=== PATIENT | male | born 1955 | race Caucasian/White ===

== ENCOUNTER 2016-08-07 15:03 | Inpatient (IN) | payer BC ==
[2016-08-07] MEDS ORDERED: NORMAL SALINE 1000 ML 1,000 ML IV ONE ×3 (15:29→17:20)
--- NOTE | 2016-08-07 15:32 | ER Document Report ---
ED Medical Screen (RME) - General Chief Complaint: Abnormal Lab Results Stated Complaint: ABNORMAL LABS Notes: Patient has been vomiting at least 3+ times a day every day for the past 10 days. He's lost about 8 pounds during this 10 days. Went to see his primary care provider last week and was put on various medicines for sinus congestion and infection. Patient relates he took more than he was supposed to take of Mucinex.. He returned to see his primary care provider today and had some lab work done which showed renal insufficiency with a creatinine of 6.5. Patient has never had any kidney dysfunction. Patient has not had any diarrhea. No fever. No urinary tract symptoms. He is still making urine. Only chronic medications are tetracycline once daily for rosacea and Crestor for high cholesterol. Patient did have a history of gastritis when he was 17 years old, but no GI conditions of late. TRAVEL OUTSIDE OF THE [place] IN LAST 30 DAYS: No - Related Data Allergies/Adverse Reactions: No Known Allergies Allergy (Verified 08/07/16 15:07) Past Medical History - Past Medical History Cardiac Medical History: Denies: Hx Heart Attack, Hx Hypertension Pulmonary Medical History: Denies: Hx Asthma Neurological Medical History: Denies: Hx Cerebrovascular Accident, Hx Seizures Renal/ Medical History: Denies: Hx Peritoneal Dialysis GI Medical History: Denies: Hx Hepatitis, Hx Hiatal Hernia, Hx Ulcer Infectious Medical History: Denies: Hx Hepatitis Past Surgical History: Denies: Hx Open Heart Surgery, Hx Pacemaker Physical Exam - Vital signs Vitals: Temp Pulse Resp BP Pulse Ox 98.0 F 73 16 154/86 H 98 08/07/16 15:09 08/07/16 15:09 08/07/16 15:09 08/07/16 15:09 08/07/16 15:09 Course - Vital Signs Vital signs: Temp Pulse Resp BP Pulse Ox 98.0 F 73 16 154/86 H 98 08/07/16 15:09 08/07/16 15:09 08/07/16 15:09 08/07/16 15:09 08/07/16 15:09
[2016-08-07] MEDS ORDERED: ONDANSETRON HCL INJ/PF 4 MG/2 ML SDV IV ONE (15:33)
[2016-08-07 16:17] LABS: HEMATOCRIT 28.6 % (37.9-51.0); HEMOGLOBIN 9.7 g/dL (13.5-17.0); HGB HCT DIFFERENCE 0.5; MEAN CORPUSCULAR HEMOGLOBIN 34.2 pg (27.0-33.4); MEAN CORPUSCULAR VOLUME 101 fl (80-97); RED BLOOD COUNT 2.85 10^6/uL (4.35-5.55); WHITE BLOOD COUNT 9.9 10^3/uL (4.0-10.5)
--- NOTE | 2016-08-07 16:22 | ER Document Report ---
ED General - General Mode of Arrival: Ambulatory Information source: Patient TRAVEL OUTSIDE OF THE [place] IN LAST 30 DAYS: No - HPI Patient complains to provider of: Vomiting and Abnormal Lab Results Onset: Other - 10 days ago Associated symptoms: Other - see notes above <PRISCILLA DEE - Last Filed: 08/07/16 17:31> <ALEAMARY AURE - Last Filed: 08/07/16 22:47> - General Chief Complaint: Abnormal Lab Results Stated Complaint: ABNORMAL LABS Notes: 61 year old male with history of hernial repair (few months ago) presents to the ED complaining of multiple episodes of vomiting (clear liquid) per day for the past 10 days. Patient reports that he saw his primary care physician last week and was prescribed medication for sinus congestion and infection. Patient reports that he has lost 8 pounds during the last 10 days. Patient returned to his primary care provider today for blood work and was sent to the ED after having a creatinine of 6.5. Patient denies history of kidney dysfunction. Patient states that his provider believes that he is vomiting up his sinus drainage. Patient reports a mild headache at bedside, and denies diarrhea or abnormal bowel movements. Patient has been having normal bowel movements for the past 10 days. (PRISCILLA DEE) - Related Data Allergies/Adverse Reactions: No Known Allergies Allergy (Verified 08/07/16 15:07) Home Medications: Current Home Medications Fexofenadine HCl [Berenice] 180 mg PO DAILY 08/07/16 [History] Guaifenesin/Dextromethorphan [Mucinex Dm ER 1,200-60 mg Tab] 1 tab PO Q12 [History] Naproxen 500 mg PO Q12 08/07/16 [History] Omeprazole 20 mg PO ACBRKFST 08/07/16 [History] Oxycodone HCl/Acetaminophen [Percocet 5-325 mg Tablet] 1 tab PO Q6HP PRN [History] Rosuvastatin Calcium [Crestor 5 mg Tablet] 5 mg PO DAILY 08/07/16 [History] Tetracycline HCl [Sumycin 500] 500 mg PO DAILY 08/07/16 [History] Past Medical History - General Information source: Patient - Social History Smoking Status: Unknown if Ever Smoked Family History: Reviewed & Not Pertinent Patient has suicidal ideation: No Patient has homicidal ideation: No Renal/ Medical History: Denies: Hx Peritoneal Dialysis Past Surgical History: Reports: Hx Abdominal Surgery - hernia repair x2 <PRISCILLA DEE - Last Filed: 08/07/16 17:31> Review of Systems - Review of Systems Constitutional: No symptoms reported EENT: No symptoms reported Cardiovascular: No symptoms reported Respiratory: No symptoms reported Gastrointestinal: See HPI, Vomiting. denies: Abdominal pain, Diarrhea Genitourinary: No symptoms reported Male Genitourinary: No symptoms reported Musculoskeletal: No symptoms reported Skin: No symptoms reported Hematologic/Lymphatic: No symptoms reported Neurological/Psychological: See HPI, Headaches -: Yes All other systems reviewed and negative <PRISCILLA DEE - Last Filed: 08/07/16 17:31> Course - Laboratory Result Diagrams: 08/07/16 15:45 08/07/16 15:45 - Consults Dr. Murcia Time consulted: 16:22 Time consulted: 17:16 <PRISCILLA DEE - Last Filed: 08/07/16 17:31> - Laboratory Result Diagrams: 08/07/16 15:45 08/07/16 15:45 - Diagnostic Test Radiology reviewed: Reports reviewed - Consults Dr. Chaudhry Time consulted: 17:00 - does not need dialysis at this time Can be admitted here Consulted provider: will see as inpatient <MARY COSBY - Last Filed: 08/07/16 22:47> - Re-evaluation Re-evalutation: 08/07/16 17:18 Patient is a 61-year-old male who presents with vomiting for the last few days, and outpatient blood work that is showing acute renal insufficiency. Patient has no complaints at this time. Patient was able to keep down breakfast this morning and is tolerating water at this time. Patient is making urine. Patient does have a acute renal insufficiency on his blood work. Potassium is 5.1. Patient was discussed with the hospitalist service, nephrology was consulted, and it was agreed that the patient could be admitted here for his acute renal insufficiency due to dehydration from vomiting. The patient has no abdominal pain. He has been having bowel movements. He is tolerating by mouth at this time. He has good urine output. Stable time of admission. Patient agrees with this plan. 08/07/16 Of note, no acute findings on bladder or renal ultrasound. (MARY COSBY) - Vital Signs Vital signs: Temp Pulse Resp BP Pulse Ox 98.2 F 69 20 132/82 H 95 08/07/16 19:09 08/07/16 19:09 08/07/16 19:09 08/07/16 19:09 08/07/16 19:09 - Laboratory Laboratory results interpreted by me: 08/07/16 08/07/16 08/07/16 15:45 15:45 15:45 RBC 2.85 L Hgb 9.7 L Hct 28.6 L MCV 101 H MCH 34.2 H RDW 17.0 H Plt Count 134 L Monocytes % (Manual) 23 H Metamyelocytes % 1 H Abs Monocytes (Manual) 2.3 H Potassium 5.1 H Chloride 110 H Carbon Dioxide 17 L BUN 67 H Creatinine 6.64 H Est GFR ( Amer) 10 L Est GFR (Non-Af Amer) 9 L Uric Acid 10.3 H Phosphorus 7.9 H Direct Bilirubin 0.6 H Total Protein 10.9 H Urine Blood Ur Leukocyte Esterase 08/07/16 17:58 RBC Hgb Hct MCV MCH RDW Plt Count Monocytes % (Manual) Metamyelocytes % Abs Monocytes (Manual) Potassium Chloride Carbon Dioxide BUN Creatinine Est GFR ( Amer) Est GFR (Non-Af Amer) Uric Acid Phosphorus Direct Bilirubin Total Protein Urine Blood MODERATE H Ur Leukocyte Esterase TRACE H - Consults Dr. Murcia Reason for consultation: 08/07/16 16:22 Patient was discussed with Dr. Murcia and he states that we do no not have dialysis, so the patient will have to be transferred out. 08/07/16 17:31 (PRISCILLA DEE) Called back after discussion with Dr. Chaudhry. Agrees that patient can be admitted here for ARF due to dehydration. (MARY COSBY) Reason for consultation: 08/07/16 17:16 Patient was discussed with and agrees to admit the patient. (PRISCILLA DEE) Critical Care Note - Critical Care Note Total time excluding time spent on procedures (mins): 45 - evaluation and management of acute renal insufficiency, dehydration, consultation with specialist, coordination of admission, counseling of patient and family <MARY COSBY - Last Filed: 08/07/16 22:47> Discharge <PRISCILLA DEE - Last Filed: 08/07/16 17:31> - Discharge Admitting Provider: [facility] Admitted: Telemetry <MARY COSBY - Last Filed: 08/07/16 22:47> - Discharge Clinical Impression: Dehydration Acute renal failure Qualifiers: Acute renal failure type: unspecified Qualified Code(s): N17.9 - Acute kidney failure, unspecified Condition: Stable Disposition: ADMITTED INPATIENT Scribe Attestation: 08/07/16 22:47 I personally performed the services described in the documentation, reviewed and edited the documentation which was dictated to the scribe in my presence, and it accurately records my words and actions. (MARY COSBY) Scribe Documentation - Scribe Written by Scribe:: Preston Cary, 08/07/2016 1636 acting as scribe for :: Alea <PRISCILLA DEE - Last Filed: 08/07/16 17:31>
[2016-08-07 16:30] LABS: BAND NEUTROPHILS % (MANUAL) 3 % (3-5); BASOPHILS % (MANUAL) 0 % (0-2); EOSINOPHILS % (MANUAL) 2 % (0-6); LYMPHOCYTES % (MANUAL) 25 % (13-45); TOTAL CELLS COUNTED 100
[2016-08-07 16:31] LABS: ANISOCYTOSIS 1+; POLYCHROMASIA SLIGHT; TOXIC GRANULATION SLIGHT
[2016-08-07 16:32] LABS: ALANINE AMINOTRANSFERASE 31 U/L (21-72); ALBUMIN 3.9 g/dL (3.5-5.0); ALKALINE PHOSPHATASE 96 U/L (38-126); ANION GAP 17 (5-19); ASPARTATE AMINO TRANSFERASE 27 U/L (17-59); BILIRUBIN,DIRECT 0.6 mg/dL (0.0-0.4); BILIRUBIN,TOTAL 0.7 mg/dL (0.2-1.3); BLOOD UREA NITROGEN 67 mg/dL (7-20); CALCIUM 9.5 mg/dL (8.4-10.2); CARBON DIOXIDE 17 mmol/L (22-30); CHLORIDE 110 mmol/L (98-107); CREATINE KINASE 106 U/L (55-170); CREATININE RESULT 6.64 mg/dL (0.52-1.25); GLUCOSE 102 mg/dL (75-110); POTASSIUM 5.1 mmol/L (3.6-5.0); SODIUM 144.1 mmol/L (137-145); TOTAL PROTEIN 10.9 g/dL (6.3-8.2)
[2016-08-07 18:27] LABS: APPEARANCE,URINE CLEAR; BILIRUBIN,URINE NEGATIVE (NEGATIVE); GLUCOSE, URINE NEGATIVE (NEGATIVE); KETONES,URINE NEGATIVE (NEGATIVE); LEUKOCYTE ESTERASE,URINE TRACE (NEGATIVE); NITRITE,URINE NEGATIVE (NEGATIVE); PROTEIN,URINE NEGATIVE (NEGATIVE); URINE SPECIFIC GRAVITY 1.011; UROBILINOGEN,URINE NEGATIVE mg/dL (<2.0)
[2016-08-07] MEDS ORDERED: IPRATROPIUM/ALBUTEROL 0.5-2.5 MG/3 ML AMPUL NEB PRN (18:43)
[2016-08-07] MEDS ORDERED: ACETAMINOPHEN 325 MG TABLET PO PRN (18:43)
[2016-08-07 19:26] LABS: LIPASE 208.3 U/L (23-300); MAGNESIUM 2.3 mg/dL (1.6-2.3); PHOSPHORUS 7.9 mg/dL (2.5-4.5); URIC ACID 10.3 mg/dL (3.5-8.5)
[2016-08-07] MEDS: NORMAL SALINE 1000 ML 1,000 ML IV PRN (20:40)
[2016-08-07] MEDS: PANTOPRAZOLE SODIUM 40 MG VIAL IV SCH (21:28)
--- NOTE | 2016-08-07 22:30 | EKG REPORT ---
SEVERITY:- ABNORMAL ECG - SINUS RHYTHM INCOMPLETE RIGHT BUNDLE BRANCH BLOCK : Confirmed by: Emelyn Charles MD 07-Aug-2016 22:30:05
[2016-08-08 06:17] LABS: HEMATOCRIT 23.9 % (37.9-51.0); HEMOGLOBIN 8.2 g/dL (13.5-17.0); HGB HCT DIFFERENCE 0.7; MEAN CORPUSCULAR HGB CONC 34.2 g/dL (32.0-36.0); MEAN CORPUSCULAR VOLUME 99 fl (80-97); RED CELL DISTRIBUTION WIDTH 16.6 % (11.5-14.0); WHITE BLOOD COUNT 6.9 10^3/uL (4.0-10.5)
[2016-08-08] MEDS: NORMAL SALINE 1000 ML 1,000 ML IV PRN ×3 (06:23→18:05)
[2016-08-08 06:28] LABS: ANION GAP 9 (5-19); BLOOD UREA NITROGEN 59 mg/dL (7-20); CALCIUM 8.5 mg/dL (8.4-10.2); CARBON DIOXIDE 19 mmol/L (22-30); CHLORIDE 115 mmol/L (98-107); CHOLESTEROL 107.62 mg/dL (0-200); CREATININE RESULT 6.26 mg/dL (0.52-1.25); Direct HDL 20 mg/dL (>40); GLUCOSE 95 mg/dL (75-110); TRIGLYCERIDES 153 mg/dL (<150)
[2016-08-08 06:39] LABS: BAND NEUTROPHILS % (MANUAL) 5 % (3-5); BASOPHILS % (MANUAL) 0 % (0-2); DIRECT LDL 41 mg/dL (<100); EOSINOPHILS % (MANUAL) 3 % (0-6); LYMPHOCYTES % (MANUAL) 29 % (13-45); TOTAL CELLS COUNTED 100
[2016-08-08] MEDS: ONDANSETRON HCL INJ/PF 4 MG/2 ML SDV IV PRN ×3 (06:39→23:20)
[2016-08-08 06:41] LABS: ANISOCYTOSIS 1+; TOXIC GRANULATION SLIGHT
[2016-08-08 06:42] LABS: POLYCHROMASIA SLIGHT
[2016-08-08 06:43] LABS: VLDL CHOLESTEROL 30.6 mg/dL (10-31)
[2016-08-08 07:36] LABS: FOLATE 7.06 ng/mL (>2.76)
[2016-08-08] MEDS: PANTOPRAZOLE SODIUM 40 MG VIAL IV SCH ×2 (08:54→21:43)
[2016-08-08] MEDS ORDERED: DEXTROSE 50%-WATER 25 GM/50 ML DISP.SYRIN IV ONE (09:45)
[2016-08-08] MEDS ORDERED: INSULIN REG, HUMAN 100 UNIT/ML 3 ML VIAL (PYX) IV ONE (09:45)
--- NOTE | 2016-08-08 10:01 | EKG REPORT ---
SEVERITY:- NORMAL ECG - SINUS RHYTHM : Confirmed by: Janes Muñiz 08-Aug-2016 10:01:00
[2016-08-08] MEDS: SODIUM POLYSTYRENE SULFONATE 15 GM/60 ML PO SCH ×2 (10:25→21:43)
--- NOTE | 2016-08-08 15:42 | PDOC CONSULTATION ---
Consultation Consult Date: 08/08/16 Consult reason:: Acute kidney injury and hyperkalemia History of Present Illness Admission Date/PCP: 08/07/16 18:43 DAQUAN MEJIA MD History of Present Illness: Patient is a 61 years old gentleman with a rather insignificant past medical history but for hypercholesterolemia and taking Crestor was sent to the ER by Dr. Daquan Turcios with apparent abnormal labs/acute kidney injury. He gives a history of about 10 days of nausea vomiting and unable to eat much. However he has been able to hydrate himself and he has been urinating quite well. No history of any hematemesis abdominal pains diarrhea. No history of any orthostasis focal deficits. He states his urine began to get dark over the last couple of days. He saw Dr. Turcios who initially diagnosed in with possible atypical viral disease and was symptomatically treating him. Those medications also included naproxen which was taking 1 a day. Patient denies any history of skin lesions, polyarthralgia. No Family history of kidney diseases. No previous history of acute or chronic kidney disease in the patient. His admission BUNs/creatinine was 67/6.6 and today is 59/6.2 potassium was 5.1 on admission today is 6.0 and is being given Kayexalate. Calcium of 9.5 phosphorus of 7.9. CPK is normal and his pancreatic enzymes are normal. Hemoglobin on admission was 9.7 and today has dropped to 8.2. Anemia workup has been initiated. His electrophoresis is pending. Past Medical History Cardiac Medical History: Denies: Hypertension-primary, Myocardial Infarction Pulmonary Medical History: Denies: Asthma Neurological Medical History: Denies: Seizures Endocrine Medical History: Reports: Other - Hyperlipidemia GI Medical History: Denies: Hepatitis, Hiatal Hernia Psychiatric Medical History: Denies: Depression Past Surgical History Past Surgical History: Reports: Other - Double inguinal hernia surgery recently at [facility] Denies: Pacemaker Social History Smoking Status: Former Smoker Last Time Smoked: 2013 Frequency of Alcohol Use: None Hx Recreational Drug Use: No - Advance Directive Resuscitation Status: Full Code Family History Parental Family History Reviewed: Yes - positive for diabetes but negative for ckd Children Family History Reviewed: Yes Sibling(s) Family History Reviewed.: Yes Medication/Allergy Home Medications: Fexofenadine HCl [Berenice] 180 mg PO DAILY 08/07/16 Guaifenesin/Dextromethorphan [Mucinex Dm ER 1,200-60 mg Tab] 1 tab PO Q12 Naproxen 500 mg PO Q12 08/07/16 Omeprazole 20 mg PO ACBRKFST 08/07/16 Oxycodone HCl/Acetaminophen [Percocet 5-325 mg Tablet] 1 tab PO Q6HP PRN Rosuvastatin Calcium [Crestor 5 mg Tablet] 5 mg PO DAILY 08/07/16 Tetracycline HCl [Sumycin 500] 500 mg PO DAILY 08/07/16 Allergies/Adverse Reactions: No Known Allergies Allergy (Verified 08/07/16 15:07) Review of Systems Review of Systems: Constitutional: PRESENT: as per HPI. ABSENT: chills, fever(s), weight gain, weight loss Eyes: ABSENT: visual disturbances Ears: ABSENT: hearing changes Cardiovascular: ABSENT: chest pain, dyspnea on exertion, edema, orthropnea, palpitations Respiratory: ABSENT: cough, hemoptysis Gastrointestinal: ABSENT: abdominal pain, constipation, diarrhea, hematemesis, hematochezia, Genitourinary: ABSENT: dysuria, hematuria Musculoskeletal: ABSENT: joint swelling Integumentary: ABSENT: rash, wounds Neurological: ABSENT: abnormal gait, abnormal speech, confusion, dizziness, focal weakness, syncope Psychiatric: ABSENT: anxiety, depression, homicidal ideation, suicidal ideation Endocrine: ABSENT: cold intolerance, heat intolerance, polydipsia, polyuria Hematologic/Lymphatic: ABSENT: easy bleeding, easy bruising, lymphadenopathy Physical Exam Vital Signs: Temp Pulse Resp BP Pulse Ox 97.8 F 70 17 143/82 H 99 08/08/16 11:24 08/08/16 11:24 08/08/16 11:24 08/08/16 11:24 08/08/16 11:24 Intake & Output 08/07/16 08/08/16 08/09/16 06:59 06:59 06:59 Intake Total 507 Balance 507 Weight 95.8 kg General appearance: PRESENT: no acute distress Eye exam: PRESENT: conjunctiva pink, EOMI, PERRLA. ABSENT: nystagmus, scleral icterus Ear exam: PRESENT: normal external ear exam Neck exam: ABSENT: lymphadenopathy, meningismus, tenderness, thyromegaly, tracheal deviation Respiratory exam: PRESENT: clear to auscultation gloria, symmetrical. ABSENT: chest wall tenderness, crackles, rhonchi Cardiovascular exam: PRESENT: +S1, +S2 GI/Abdominal exam: PRESENT: normal bowel sounds, soft. ABSENT: distended, firm , organomegaly, tenderness Extremities exam: ABSENT: pedal edema Neurological exam: PRESENT: alert, awake, oriented to person, oriented to place , oriented to time Skin exam: PRESENT: dry. ABSENT: cyanosis, erythema, mottled, rash Results Laboratory Results: 08/08/16 05:43 08/08/16 05:43 08/08/16 08/08/16 08/08/16 05:43 05:43 13:28 WBC 6.9 RBC 2.40 L Hgb 8.2 L Hct 23.9 L MCV 99 H MCH 34.0 H MCHC 34.2 RDW 16.6 H Plt Count 115 L Seg Neutrophils % Not Reportable Lymphocytes % Not Reportable Monocytes % Not Reportable Eosinophils % Not Reportable Basophils % Not Reportable Absolute Neutrophils Not Reportable Absolute Lymphocytes Not Reportable Absolute Monocytes Not Reportable Absolute Eosinophils Not Reportable Absolute Basophils Not Reportable Retic Count (auto) 1.50 Absolute Retic 0.036 Sodium 143.0 Potassium 6.0 H* Chloride 115 H Carbon Dioxide 19 L Anion Gap 9 BUN 59 H Creatinine 6.26 H Est GFR ( Amer) 11 L Est GFR (Non-Af Amer) 9 L Glucose 95 Calcium 8.5 Iron 55.4 TIBC 197 L % Saturation 28 Ferritin 153.00 Triglycerides 153 H Cholesterol 107.62 LDL Cholesterol Direct 41 VLDL Cholesterol 30.6 HDL Cholesterol 20 L Vitamin B12 571.0 Folate 7.06 Stool Occult Blood NEGATIVE Impressions: Renal Ultrasound 08/07/16 00:00 IMPRESSION: NORMAL RENAL AND BLADDER ULTRASOUND. Assessment & Plan - Diagnosis (1) Hyperkalemia Plan: Being treated with Kayexalate. Monitor. Labs ordered for 1600 hours. Continue with IV fluids. (2) Vomiting Plan: Presently better since he has been given Zofran. Patient has had some breakfast and lunch which has kept inside. (3) Acute renal failure Qualifiers: Acute renal failure type: unspecified Qualified Code(s): N17.9 - Acute kidney failure, unspecified Plan: Secondary to dehydration and possible naproxen. Renal ultrasound negative for any issues. Continue with appropriate hydration. Hemodynamically stable. Expect hopefully complete recovery in the next few days. (4) Dehydration Plan: On IV saline and continue the present rate.
[2016-08-08 16:22] LABS: ANION GAP 9 (5-19); BLOOD UREA NITROGEN 58 mg/dL (7-20); CALCIUM 8.6 mg/dL (8.4-10.2); CARBON DIOXIDE 21 mmol/L (22-30); CHLORIDE 114 mmol/L (98-107); CREATININE RESULT 5.89 mg/dL (0.52-1.25); GLUCOSE 132 mg/dL (75-110); POTASSIUM 5.2 mmol/L (3.6-5.0); SODIUM 144.4 mmol/L (137-145)
--- NOTE | 2016-08-08 17:07 | PDOC H&P ---
History of Present Illness Admission Date/PCP: 08/07/16 18:07 KINGA MEJIA MD Patient complains of: Nausea and vomiting for a week History of Present Illness: BENNETT CASTILLO is a 61 year old male presents from his primary care provider's office after labs revealed renal insufficiency with a serum creatinine up to 6.4. Patient reports over the course of the last week he's had intense sinus drainage that makes him nauseous and so is been unable to eat or drink anything of substance and has been vomiting quite frequently. He denies abdominal pain, fevers or chills, sore throat, odynophagia, chest pain, palpitations, diarrhea. He does not use chronic nonsteroidal anti-inflammatory medications and does not take a daily aspirin. He has not noticed a change in the color content or volume of his urine. He denies dysuric symptoms. He has never had renal insufficiency before to his knowledge. He was seen in his PCPs office earlier in the week and treated with Mucinex which he took inappropriately for about a day and was the extended release formulation that he took every 6 hours instead of every 12. He also started taking Berenice but without the pseudoephedrine portion and his primary care provider recently started him on Prilosec. Evaluation in the emergency department shows a markedly elevated BUN/creatinine is 67/6.4, his potassium is 5.1, CO2 is 17. He is alert and oriented to person present time. He has no EKG changes. We've been asked to admit for IV hydration and nephrology consult. Past Medical History Cardiac Medical History: Denies: Myocardial Infarction, Hypertension Pulmonary Medical History: Denies: Asthma Neurological Medical History: Denies: Seizures GI Medical History: Denies: Hepatitis, Hiatal Hernia Hematology: Denies: Anemia, Sickle Cell Disease Past Surgical History Past Surgical History: Denies: Pacemaker Social History Smoking Status: Unknown if Ever Smoked - Advance Directive Resuscitation Status: Full Code Family History Family History: Reviewed & Not Pertinent Parental Family History Reviewed: Yes Children Family History Reviewed: Yes Sibling(s) Family History Reviewed.: Yes Medication/Allergy Home Medications: Fexofenadine HCl [Berenice] 180 mg PO DAILY 08/07/16 Guaifenesin/Dextromethorphan [Mucinex Dm ER 1,200-60 mg Tab] 1 tab PO Q12 04/07/ 17 Naproxen 500 mg PO Q12 08/07/16 Omeprazole 20 mg PO ACBRKFST 08/07/16 Oxycodone HCl/Acetaminophen [Percocet 5-325 mg Tablet] 1 tab PO Q6HP PRN Rosuvastatin Calcium [Crestor 5 mg Tablet] 5 mg PO DAILY 08/07/16 Tetracycline HCl [Sumycin 500] 500 mg PO DAILY 08/07/16 Allergies/Adverse Reactions: No Known Allergies Allergy (Verified 08/07/16 15:07) Review of Systems Constitutional: ABSENT: chills, fever(s), headache(s), weight gain, weight loss Eyes: ABSENT: visual disturbances Ears: ABSENT: hearing changes Nose, Mouth, and Throat: PRESENT: as per HPI. ABSENT: sore throat Cardiovascular: ABSENT: chest pain, dyspnea on exertion, edema, orthropnea, palpitations Respiratory: ABSENT: cough, hemoptysis Gastrointestinal: PRESENT: nausea, vomiting. ABSENT: abdominal pain, constipation, hematemesis, hematochezia Genitourinary: ABSENT: difficulty urinating, dysuria, hematuria Musculoskeletal: ABSENT: joint swelling Integumentary: ABSENT: rash, wounds Neurological: ABSENT: abnormal gait, abnormal speech, confusion, dizziness, focal weakness, syncope Psychiatric: ABSENT: anxiety, depression, homidical ideation, suicidal ideation Endocrine: ABSENT: cold intolerance, heat intolerance, polydipsia, polyuria Hematologic/Lymphatic: ABSENT: easy bleeding, easy bruising Physical Exam Vital Signs: Temp Pulse Resp BP Pulse Ox 98.0 F 73 16 154/86 H 98 08/07/16 15:09 08/07/16 15:09 08/07/16 15:09 08/07/16 15:09 08/07/16 15:09 PHYSICAL EXAM GENERAL: NAD; well developed, well nourished; no obese; alert and oriented to person, place, time, situation HEENT: normocephalic, atraumatic; EOMI, PERRLA, no conjunctival injection, no scleral icterus; oral mucosa moist; neck supple, no LAD, normal ROM RESPIRATORY: no accessory muscle use, no increased WOB, good air entry bilaterally; no wheezes, rales, rhonchi; no inspiratory crackles CARDIO: no JVD; RRR; no systolic murmur; no tachycardia VASCULAR: no carotid bruit; no abdominal bruit; no pallor; 2+ radial, DP pulse ; normal capillary refill GI: soft; nondistended; normal bowel sounds; no hepato spleno megaly; no rebound, rigidity, guarding : normal external genitalia; rectal deferred NEURO: normal patella reflexes; normal sensation; normal motor function; no gait abnls; no dysarthria; no nystagmus; tongue protrudes midline MSK: 5/5 strength; normal ROM hips; ambulatory without assistance; no tenderness EXTREMITIES: no calf tender; no palpable cords in calf; no clubbing, cyanosis , pedal edema PSYCH: normal affect, normal mood SKIN: warm; moist; no petechiae; no telengectasias; no jaundice; no rash Results Laboratory Results: Labs reviewed, mild anemia with macrocytosis and thrombocytopenia; chemistries show BUN and creatinine markedly elevated, phosphorus is 7.9, uric acid of 10.3 Assessment & Plan - Diagnosis (1) Acute renal failure Qualifiers: Acute renal failure type: unspecified Qualified Code(s): N17.9 - Acute kidney failure, unspecified Is this a current diagnosis for this admission?: YesPlan: Likely prerenal. Patient being admitted to the hospital for IV fluids and further investigation. We'll get a renal ultrasound to evaluate for obstruction. Strict I's and O's. Nephrology consult for further recommendations. (2) Dehydration Is this a current diagnosis for this admission?: YesPlan: As above. (3) Hyperkalemia Is this a current diagnosis for this admission?: YesPlan: Likely secondary to acute renal failure. No EKG changes noted at present. We' ll continue to monitor at this time, I suspect will decrease with IV fluids. (4) Vomiting Qualifiers: Vomiting type: unspecified Is this a current diagnosis for this admission?: YesPlan: Unclear etiology. Probable viral enteritis. Start PPI therapy twice a day and continue to monitor. (5) Macrocytic anemia Is this a current diagnosis for this admission?: YesPlan: No evidence for blood loss. Possibly nutrition related. Anemia workup. - Time Time Spent: Greater than 70 Minutes Medications reviewed and adjusted accordingly: Yes Anticipated discharge: Home Within: within 72 hours - Inpatient Certification Medical Necessity: Significant Comorbidiites Make Outpatient Treatment Too Risky , Need For IV Fluids, Risk of Complication if Not Cared For in Hospital
--- NOTE | 2016-08-08 17:19 | PDOC PROGRESS REPORT ---
Subjective Progress Note for:: 08/08/16 Subjective:: Reason for follow-up visit: Acute renal failure, hyperkalemia, anemia, vomiting Hospital course: BENNETT CASTILLO is a 61 year old male presents from his primary care provider's office after labs revealed renal insufficiency with a serum creatinine up to 6.4. Patient reports over the course of the last week he's had intense sinus drainage that makes him nauseous and so is been unable to eat or drink anything of substance and has been vomiting quite frequently. He denies abdominal pain, fevers or chills, sore throat, odynophagia, chest pain, palpitations, diarrhea. He does not use chronic nonsteroidal anti-inflammatory medications and does not take a daily aspirin. He has not noticed a change in the color content or volume of his urine. He denies dysuric symptoms. He has never had renal insufficiency before to his knowledge. He was seen in his PCPs office earlier in the week and treated with Mucinex which he took inappropriately for about a day and was the extended release formulation that he took every 6 hours instead of every 12. He also started taking Berenice but without the pseudoephedrine portion and his primary care provider recently started him on Prilosec. Evaluation in the emergency department shows a markedly elevated BUN/creatinine is 67/6.4, his potassium is 5.1, CO2 is 17. He is alert and oriented to person present time. He has no EKG changes. We've been asked to admit for IV hydration and nephrology consult. He was admitted to the hospital and started on IV fluids with no improvement in his overall condition, he continues to complain of nausea and anorexia and his renal function really hasn't improved. He continues to deny abdominal pain, or diarrhea, chest pain, palpitations, fever, chills. ROS: per HPI plus a total of 10 systems reviewed, pertinent positives and negatives noted above, remaining systems negative. Physical Exam Vital Signs: Temp Pulse Resp BP Pulse Ox 98.8 F 70 17 145/72 H 100 08/08/16 15:15 08/08/16 15:15 08/08/16 15:15 08/08/16 15:15 08/08/16 15:15 Intake & Output 08/07/16 08/08/16 08/09/16 06:59 06:59 06:59 Intake Total 507 Balance 507 Weight 95.8 kg PHYSICAL EXAM GENERAL: NAD; well developed, well nourished; no obese; alert and oriented to person, place, time, situation HEENT: normocephalic, atraumatic, no conjunctival injection, no scleral icterus ; oral mucosa moist; neck supple, no LAD, normal ROM RESPIRATORY: no accessory muscle use, no increased WOB, good air entry bilaterally; no wheezes, rales, rhonchi; no inspiratory crackles CARDIO: no JVD; RRR; no systolic murmur; no tachycardia VASCULAR: no carotid bruit; no abdominal bruit; no pallor; 2+ radial, GI: soft; nondistended; normal bowel sounds; no rebound, rigidity, guarding NEURO: normal patella reflexes; normal sensation; normal motor function; MSK: 5/5 strength; normal ROM hips; ambulatory without assistance; no tenderness EXTREMITIES: no calf tender; no palpable cords in calf; no clubbing, cyanosis , pedal edema PSYCH: normal affect, normal mood SKIN: warm; moist; no petechiae; no telengectasias; no jaundice; no rash Results Laboratory Results: 08/08/16 05:43 08/08/16 15:45 08/08/16 08/08/16 08/08/16 05:43 05:43 13:28 WBC 6.9 RBC 2.40 L Hgb 8.2 L Hct 23.9 L MCV 99 H MCH 34.0 H MCHC 34.2 RDW 16.6 H Plt Count 115 L Seg Neutrophils % Not Reportable Lymphocytes % Not Reportable Monocytes % Not Reportable Eosinophils % Not Reportable Basophils % Not Reportable Absolute Neutrophils Not Reportable Absolute Lymphocytes Not Reportable Absolute Monocytes Not Reportable Absolute Eosinophils Not Reportable Absolute Basophils Not Reportable Retic Count (auto) 1.50 Absolute Retic 0.036 Sodium 143.0 Potassium 6.0 H* Chloride 115 H Carbon Dioxide 19 L Anion Gap 9 BUN 59 H Creatinine 6.26 H Est GFR ( Amer) 11 L Est GFR (Non-Af Amer) 9 L Glucose 95 Calcium 8.5 Iron 55.4 TIBC 197 L % Saturation 28 Ferritin 153.00 Triglycerides 153 H Cholesterol 107.62 LDL Cholesterol Direct 41 VLDL Cholesterol 30.6 HDL Cholesterol 20 L Vitamin B12 571.0 Folate 7.06 Stool Occult Blood NEGATIVE 08/08/16 15:45 WBC RBC Hgb Hct MCV MCH MCHC RDW Plt Count Seg Neutrophils % Lymphocytes % Monocytes % Eosinophils % Basophils % Absolute Neutrophils Absolute Lymphocytes Absolute Monocytes Absolute Eosinophils Absolute Basophils Retic Count (auto) Absolute Retic Sodium 144.4 Potassium 5.2 H Chloride 114 H Carbon Dioxide 21 L Anion Gap 9 BUN 58 H Creatinine 5.89 H Est GFR ( Amer) 12 L Est GFR (Non-Af Amer) 10 L Glucose 132 H Calcium 8.6 Iron TIBC % Saturation Ferritin Triglycerides Cholesterol LDL Cholesterol Direct VLDL Cholesterol HDL Cholesterol Vitamin B12 Folate Stool Occult Blood Impressions: Renal Ultrasound 08/07/16 00:00 IMPRESSION: NORMAL RENAL AND BLADDER ULTRASOUND. Assessment & Plan - Diagnosis (1) Acute renal failure Qualifiers: Acute renal failure type: unspecified Qualified Code(s): N17.9 - Acute kidney failure, unspecified Is this a current diagnosis for this admission?: YesPlan: Likely prerenal. continue IV fluids and further investigation. renal ultrasound negative for obstruction. Strict I's and O's. Nephrology consult for further recommendations. (2) Dehydration Is this a current diagnosis for this admission?: YesPlan: Increase IV fluids. (3) Hyperkalemia Is this a current diagnosis for this admission?: YesPlan: Worse. Likely secondary to acute renal failure. No EKG changes noted. Treat with IV insulin/D50 and Kayexalate, repeat labs this afternoon and treat again if needed. (4) Vomiting Qualifiers: Vomiting type: unspecified Is this a current diagnosis for this admission?: YesPlan: Unclear etiology. Probable viral enteritis. Continue PPI therapy twice a day and continue to monitor. (5) Macrocytic anemia Is this a current diagnosis for this admission?: YesPlan: No evidence for blood loss. Possibly nutrition related. Anemia workup underway. - Time Time Spent with patient: 25-34 minutes Medications reviewed and adjusted accordingly: Yes Anticipated discharge: Home Within: within 72 hours
[2016-08-09 06:42] LABS: HEMATOCRIT 24.7 % (37.9-51.0); HEMOGLOBIN 8.4 g/dL (13.5-17.0); HGB HCT DIFFERENCE 0.5; MEAN CORPUSCULAR HEMOGLOBIN 34.4 pg (27.0-33.4); MEAN CORPUSCULAR HGB CONC 34.1 g/dL (32.0-36.0); MEAN CORPUSCULAR VOLUME 101 fl (80-97); RED BLOOD COUNT 2.45 10^6/uL (4.35-5.55); RED CELL DISTRIBUTION WIDTH 16.9 % (11.5-14.0); WHITE BLOOD COUNT 9.7 10^3/uL (4.0-10.5)
[2016-08-09 06:52] LABS: ANION GAP 11 (5-19); BLOOD UREA NITROGEN 54 mg/dL (7-20); CALCIUM 8.3 mg/dL (8.4-10.2); CARBON DIOXIDE 19 mmol/L (22-30); CHLORIDE 115 mmol/L (98-107); CREATININE RESULT 5.56 mg/dL (0.52-1.25); GLUCOSE 98 mg/dL (75-110); POTASSIUM 5.1 mmol/L (3.6-5.0); SODIUM 145.1 mmol/L (137-145)
[2016-08-09 07:42] LABS: BAND NEUTROPHILS % (MANUAL) 4 % (3-5); BASOPHILS % (MANUAL) 0 % (0-2); EOSINOPHILS % (MANUAL) 1 % (0-6); LYMPHOCYTES % (MANUAL) 22 % (13-45); NUCLEATED RED BLOOD CELLS 1 /100 WBC (0); TOTAL CELLS COUNTED 100
[2016-08-09 07:44] LABS: ANISOCYTOSIS 1+
[2016-08-09] MEDS: ONDANSETRON HCL INJ/PF 4 MG/2 ML SDV IV PRN ×2 (09:30→12:43)
[2016-08-09] MEDS: PANTOPRAZOLE SODIUM 40 MG VIAL IV SCH ×2 (09:30→21:30)
[2016-08-09] MEDS: NORMAL SALINE 1000 ML 1,000 ML IV PRN (12:48)
--- NOTE | 2016-08-09 14:18 | PDOC PROGRESS REPORT ---
Subjective Progress Note for:: 08/09/16 Subjective:: Reason for follow-up visit: Acute renal failure, hyperkalemia, anemia, vomiting Hospital course: BENNETT CASTILLO is a 61 year old male presents from his primary care provider's office after labs revealed renal insufficiency with a serum creatinine up to 6.4. Patient reports over the course of the last week he's had intense sinus drainage that makes him nauseous and so is been unable to eat or drink anything of substance and has been vomiting quite frequently. He denies abdominal pain, fevers or chills, sore throat, odynophagia, chest pain, palpitations, diarrhea. He does not use chronic nonsteroidal anti-inflammatory medications and does not take a daily aspirin. He has not noticed a change in the color content or volume of his urine. He denies dysuric symptoms. He has never had renal insufficiency before to his knowledge. He was seen in his PCPs office earlier in the week and treated with Mucinex which he took inappropriately for about a day and was the extended release formulation that he took every 6 hours instead of every 12. He also started taking Berenice but without the pseudoephedrine portion and his primary care provider recently started him on Prilosec. Evaluation in the emergency department shows a markedly elevated BUN/creatinine is 67/6.4, his potassium is 5.1, CO2 is 17. He is alert and oriented to person present time. He has no EKG changes. We've been asked to admit for IV hydration and nephrology consult. He was admitted to the hospital and started on IV fluids with little improvement in his overall condition, he continues to complain of nausea and anorexia and his renal function has only minimally improved. He continues to deny abdominal pain, or diarrhea, chest pain, palpitations, fever, chills. he had several BMs after the kayexolate. ROS: per HPI plus a total of 10 systems reviewed, pertinent positives and negatives noted above, remaining systems negative. Physical Exam Vital Signs: Temp Pulse Resp BP Pulse Ox 98.0 F 65 20 143/84 H 100 08/09/16 12:00 08/09/16 12:00 08/09/16 12:00 08/09/16 12:00 08/09/16 12:00 Intake & Output 04/08/17 04/09/17 04/10/17 06:59 06:59 06:59 Intake Total 507 5060 Output Total 950 Balance 507 4120 Weight 95.8 kg 96.4 kg PHYSICAL EXAM GENERAL: NAD; well developed, well nourished; no obese; alert and oriented to person, place, time, situation; appears ill HEENT: normocephalic, atraumatic, no conjunctival injection, no scleral icterus ; oral mucosa moist; neck supple, no LAD, normal ROM RESPIRATORY: no accessory muscle use, no increased WOB, good air entry bilaterally; no wheezes, rales, rhonchi; no inspiratory crackles CARDIO: no JVD; RRR; no systolic murmur; no tachycardia VASCULAR: no carotid bruit; no abdominal bruit; no pallor; 2+ radial, GI: soft; nondistended; normal bowel sounds; no rebound, rigidity, guarding NEURO: normal patella reflexes; normal sensation; normal motor function; MSK: 5/5 strength; normal ROM hips; ambulatory without assistance; no tenderness EXTREMITIES: no calf tender; no palpable cords in calf; no clubbing, cyanosis , pedal edema PSYCH: normal affect, normal mood SKIN: warm; moist; no petechiae; no telengectasias; no jaundice; no rash Results Laboratory Results: 08/09/16 05:40 08/09/16 05:40 08/08/16 08/09/16 08/09/16 15:45 05:40 05:40 WBC 9.7 RBC 2.45 L Hgb 8.4 L Hct 24.7 L MCV 101 H MCH 34.4 H MCHC 34.1 RDW 16.9 H Plt Count 110 L Seg Neutrophils % Not Reportable Lymphocytes % Not Reportable Monocytes % Not Reportable Eosinophils % Not Reportable Basophils % Not Reportable Absolute Neutrophils Not Reportable Absolute Lymphocytes Not Reportable Absolute Monocytes Not Reportable Absolute Eosinophils Not Reportable Absolute Basophils Not Reportable Sodium 144.4 145.1 H Potassium 5.2 H 5.1 H Chloride 114 H 115 H Carbon Dioxide 21 L 19 L Anion Gap 9 11 BUN 58 H 54 H Creatinine 5.89 H 5.56 H Est GFR ( Amer) 12 L 13 L Est GFR (Non-Af Amer) 10 L 10 L Glucose 132 H 98 Calcium 8.6 8.3 L Impressions: Renal Ultrasound 08/07/16 00:00 IMPRESSION: NORMAL RENAL AND BLADDER ULTRASOUND. Abdomen/Pelvis CT 08/09/16 00:00 IMPRESSION: 1. Noncontrast study reveals no acute or suspicious abdominopelvic abnormality. As described above, oral contrast was not given due to technical error. Study can be repeated with oral contrast if felt to be clinically warranted. As assessed, however no bowel pathology evident. No hernia. Assessment & Plan - Diagnosis (1) Acute renal failure Qualifiers: Acute renal failure type: unspecified Qualified Code(s): N17.9 - Acute kidney failure, unspecified Is this a current diagnosis for this admission?: YesPlan: Likely prerenal but looking more and more like an ATN, given slow recovery of filtration/function. continue IV fluids at a lower rate. renal ultrasound negative for obstruction. Strict I's and O's. Nephrology consulted for further recommendations. (2) Dehydration Is this a current diagnosis for this admission?: Yes (3) Hyperkalemia Is this a current diagnosis for this admission?: YesPlan: improved with treatmente. Likely secondary to acute renal failure. No EKG changes noted. Treated with IV insulin/D50 and Kayexalate. (4) Vomiting Qualifiers: Vomiting type: unspecified Is this a current diagnosis for this admission?: YesPlan: suspect viral enteritis. ct a/p unrevealing. Continue PPI therapy twice a day and continue to monitor. (5) Macrocytic anemia Is this a current diagnosis for this admission?: Yes - Time Time Spent with patient: 25-34 minutes Medications reviewed and adjusted accordingly: Yes Anticipated discharge: Home Within: within 24 hours - If his condition improves and renal function does not worsen
[2016-08-09] MEDS ORDERED: DEXAMETHASONE SOD PHOS INJ 10 MG/1 ML VIAL IV PRN (15:59)
[2016-08-09] MEDS ORDERED: DEXAMETHASONE SOD PHOSPHATE 20 MG in DEXTROSE 5%-WATER 50 ML IV ONE (17:00)
[2016-08-09] MEDS ORDERED: PROMETHAZINE HCL 25 MG TABLET PO ONE (17:00)
[2016-08-09] MEDS: SODIUM BICARBONATE 650 MG TABLET PO SCH (21:25)
[2016-08-10 07:36] LABS: HEMATOCRIT 24.6 % (37.9-51.0); HEMOGLOBIN 8.5 g/dL (13.5-17.0); HGB HCT DIFFERENCE 0.9; MEAN CORPUSCULAR HEMOGLOBIN 34.4 pg (27.0-33.4); MEAN CORPUSCULAR HGB CONC 34.5 g/dL (32.0-36.0); MEAN CORPUSCULAR VOLUME 100 fl (80-97); RED BLOOD COUNT 2.47 10^6/uL (4.35-5.55); RED CELL DISTRIBUTION WIDTH 16.7 % (11.5-14.0); WHITE BLOOD COUNT 10.8 10^3/uL (4.0-10.5)
[2016-08-10 07:57] LABS: ALANINE AMINOTRANSFERASE 21 U/L (21-72); ALBUMIN 3.1 g/dL (3.5-5.0); ALKALINE PHOSPHATASE 87 U/L (38-126); ANION GAP 12 (5-19); ASPARTATE AMINO TRANSFERASE 18 U/L (17-59); BILIRUBIN,DIRECT 0.4 mg/dL (0.0-0.4); BILIRUBIN,TOTAL 0.4 mg/dL (0.2-1.3); BLOOD UREA NITROGEN 52 mg/dL (7-20); CALCIUM 8.5 mg/dL (8.4-10.2); CARBON DIOXIDE 18 mmol/L (22-30); CHLORIDE 114 mmol/L (98-107); CREATININE RESULT 5.66 mg/dL (0.52-1.25); GLUCOSE 137 mg/dL (75-110); MAGNESIUM 1.8 mg/dL (1.6-2.3); PHOSPHORUS 7.3 mg/dL (2.5-4.5); POTASSIUM 5.6 mmol/L (3.6-5.0); TOTAL PROTEIN 9.1 g/dL (6.3-8.2); URIC ACID 8.9 mg/dL (3.5-8.5)
[2016-08-10 08:08] LABS: BAND NEUTROPHILS % (MANUAL) 3 % (3-5); BASOPHILS % (MANUAL) 0 % (0-2); EOSINOPHILS % (MANUAL) 0 % (0-6); LYMPHOCYTES % (MANUAL) 18 % (13-45); TOTAL CELLS COUNTED 100
[2016-08-10 08:09] LABS: ANISOCYTOSIS 1+; OVALOCYTES 1+; POIKILOCYTOSIS 1+; ROULEAUX SLIGHT
[2016-08-10] MEDS: SODIUM POLYSTYRENE SULFONATE 15 GM/60 ML PO SCH ×2 (09:25→22:49)
[2016-08-10] MEDS: PANTOPRAZOLE SODIUM 40 MG VIAL IV SCH ×2 (09:25→22:49)
[2016-08-10] MEDS: SODIUM BICARBONATE 650 MG TABLET PO SCH ×2 (09:25→22:49)
--- NOTE | 2016-08-10 13:39 | PDOC CONSULTATION ---
Consultation Consult Date: 08/10/16 Consult reason:: Anemia History of Present Illness Admission Date/PCP: 08/07/16 18:43 KINGA MEJIA MD History of Present Illness: BENNETT CASTILLO is a 61 year old male presented from his primary care provider's office after labs revealed renal insufficiency with a serum creatinine up to 6.4 and anemia. Patient reports over the course of the last week he's had intense sinus drainage that made him nauseous and unable to eat or drink anything of substance and had been vomiting quite frequently. He denies abdominal pain, fevers or chills, sore throat, odynophagia, chest pain, palpitations, diarrhea. He was felt to have a flu and placed on a nonsteroidal anti-inflammatory which he does not take normally. He had not noticed a change in the color content or volume of his urine. He has never had renal insufficiency before to his knowledge. He was then seen in his PCPs office again earlier in the week and given his persistent symptoms he was sent to [facility] for labs. Evaluation in the emergency department shows a markedly elevated BUN/creatinine is 67/6.4, his potassium is 5.1, CO2 is 17. He had no EKG changes. He was admitted for IV hydration and nephrology consult but his Creatinine has only mildly improved and he has had a persistent anemia as well. His US of the kidneys was also negative. Past Medical History Cardiac Medical History: Denies: Myocardial Infarction, Hypertension Pulmonary Medical History: Denies: Asthma Neurological Medical History: Denies: Seizures Endocrine Medical History: Reports: Other - Hyperlipidemia GI Medical History: Denies: Hepatitis, Hiatal Hernia Psychiatric Medical History: Denies: Depression Hematology: Denies: Anemia, Sickle Cell Disease Past Surgical History Past Surgical History: Reports: Other - Double inguinal hernia surgery recently at [facility] Denies: Pacemaker Social History Smoking Status: Unknown if Ever Smoked Last Time Smoked: 2013 Frequency of Alcohol Use: None Hx Recreational Drug Use: No - Advance Directive Resuscitation Status: Full Code Family History Family History: Reviewed & Not Pertinent Parental Family History Reviewed: Yes Children Family History Reviewed: Yes Sibling(s) Family History Reviewed.: Yes Medication/Allergy Home Medications: Fexofenadine HCl [Berenice] 180 mg PO DAILY 08/07/16 Guaifenesin/Dextromethorphan [Mucinex Dm ER 1,200-60 mg Tab] 1 tab PO Q12 Naproxen 500 mg PO Q12 08/07/16 Omeprazole 20 mg PO ACBRKFST 08/07/16 Oxycodone HCl/Acetaminophen [Percocet 5-325 mg Tablet] 1 tab PO Q6HP PRN Rosuvastatin Calcium [Crestor 5 mg Tablet] 5 mg PO DAILY 08/07/16 Tetracycline HCl [Sumycin 500] 500 mg PO DAILY 08/07/16 Allergies/Adverse Reactions: No Known Allergies Allergy (Verified 08/07/16 15:07) Review of Systems Constitutional: PRESENT: as per HPI, weakness Gastrointestinal: PRESENT: nausea, vomiting Genitourinary: PRESENT: as per HPI Musculoskeletal: PRESENT: as per HPI Physical Exam Vital Signs: Temp Pulse Resp BP Pulse Ox 97.3 F 67 20 143/77 H 98 08/10/16 11:20 08/10/16 11:20 08/10/16 11:20 08/10/16 11:20 08/10/16 11:20 Intake & Output 08/09/16 08/10/16 08/11/16 06:59 06:59 06:59 Intake Total 5070 3470 Output Total 950 1775 Balance 4120 1695 Weight 96.4 kg 100.3 kg Head exam: PRESENT: atraumatic, normocephalic Eye exam: PRESENT: EOMI, PERRLA Mouth exam: PRESENT: tongue midline Respiratory exam: PRESENT: clear to auscultation gloria, unlabored Cardiovascular exam: PRESENT: RRR GI/Abdominal exam: PRESENT: normal bowel sounds, soft Musculoskeletal exam: PRESENT: ambulatory, full ROM Neurological exam: PRESENT: alert, awake, oriented to person, oriented to place , oriented to time, oriented to situation, CN II-XII grossly intact Psychiatric exam: PRESENT: appropriate affect Results Laboratory Results: 08/10/16 07:06 08/10/16 07:06 08/08/16 08/10/16 08/10/16 05:43 07:06 07:06 WBC 10.8 H RBC 2.47 L Hgb 8.5 L Hct 24.6 L MCV 100 H MCH 34.4 H MCHC 34.5 RDW 16.7 H Plt Count 114 L Seg Neutrophils % Not Reportable Lymphocytes % Not Reportable Monocytes % Not Reportable Eosinophils % Not Reportable Basophils % Not Reportable Absolute Neutrophils Not Reportable Absolute Lymphocytes Not Reportable Absolute Monocytes Not Reportable Absolute Eosinophils Not Reportable Absolute Basophils Not Reportable Sodium 144.0 Potassium 5.6 H Chloride 114 H Carbon Dioxide 18 L Anion Gap 12 BUN 52 H Creatinine 5.66 H Est GFR ( Amer) 12 L Est GFR (Non-Af Amer) 10 L Glucose 137 H Uric Acid 8.9 H Calcium 8.5 Phosphorus 7.3 H Magnesium 1.8 Transferrin 136 L Total Bilirubin 0.4 AST 18 ALT 21 Alkaline Phosphatase 87 Total Protein 9.1 H Albumin 3.1 L Impressions: Renal Ultrasound 08/07/16 00:00 IMPRESSION: NORMAL RENAL AND BLADDER ULTRASOUND. Abdomen/Pelvis CT 08/09/16 00:00 IMPRESSION: 1. Noncontrast study reveals no acute or suspicious abdominopelvic abnormality. As described above, oral contrast was not given due to technical error. Study can be repeated with oral contrast if felt to be clinically warranted. As assessed, however no bowel pathology evident. No hernia. Skeletal Survey 08/10/16 00:00 IMPRESSION: NO WORRISOME BONE LESIONS. Assessment & Plan - Diagnosis (1) Acute renal failure Qualifiers: Acute renal failure type: unspecified Qualified Code(s): N17.9 - Acute kidney failure, unspecified Is this a current diagnosis for this admission?: YesPlan: Awaiting SPEP/IEP and Urine for PEP. (2) Macrocytic anemia Is this a current diagnosis for this admission?: YesPlan: Will check for SIEP/FLC as well as a Skeletal survey. If monocytes persist, will check flow cytometry and discussed the possibility of a bone marrow. - Time Time Spent: 50 to 70 Minutes Critical Time spent with patient: 25-34 minutes Medications reviewed and adjusted accordingly: Yes
--- NOTE | 2016-08-10 15:04 | PDOC PROGRESS REPORT ---
Subjective Progress Note for:: 08/10/16 Subjective:: Reason for follow-up visit: Acute renal failure, hyperkalemia, anemia, vomiting Hospital course: BENNETT CASTILLO is a 61 year old male presents from his primary care provider's office after labs revealed renal insufficiency with a serum creatinine up to 6.4. Patient reports over the course of the last week he's had intense sinus drainage that makes him nauseous and so is been unable to eat or drink anything of substance and has been vomiting quite frequently. He denies abdominal pain, fevers or chills, sore throat, odynophagia, chest pain, palpitations, diarrhea. He does not use chronic nonsteroidal anti-inflammatory medications and does not take a daily aspirin. He has not noticed a change in the color content or volume of his urine. He denies dysuric symptoms. He has never had renal insufficiency before to his knowledge. He was seen in his PCPs office earlier in the week and treated with Mucinex which he took inappropriately for about a day and was the extended release formulation that he took every 6 hours instead of every 12. He also started taking Berenice but without the pseudoephedrine portion and his primary care provider recently started him on Prilosec. Evaluation in the emergency department shows a markedly elevated BUN/creatinine is 67/6.4, his potassium is 5.1, CO2 is 17. He is alert and oriented to person present time. He has no EKG changes. We've been asked to admit for IV hydration and nephrology consult. He was admitted to the hospital and started on IV fluids with little improvement in his overall condition, he continues to complain of nausea and anorexia and his renal function has only minimally improved. He continues to deny abdominal pain, or diarrhea, chest pain, palpitations, fever, chills. he had several BMs after the kayexolate. CT of the abdomen and pelvis did not reveal any acute pathologic process. My suspicion remains high for a viral source. However his blood counts show multiple immature cell lines and his gamma globulins are expanded on laboratory testing. We await UPEP/SPEP results. ROS: per HPI plus a total of 10 systems reviewed, pertinent positives and negatives noted above, remaining systems negative. Physical Exam Vital Signs: Temp Pulse Resp BP Pulse Ox 97.3 F 67 20 143/77 H 98 08/10/16 11:20 08/10/16 11:20 08/10/16 11:20 08/10/16 11:20 08/10/16 11:20 Intake & Output 08/09/16 08/10/16 08/11/16 06:59 06:59 06:59 Intake Total 5070 3470 474 Output Total 950 1775 600 Balance 4120 1695 -126 Weight 96.4 kg 100.3 kg PHYSICAL EXAM GENERAL: NAD; well developed, well nourished; no obese; alert and oriented to person, place, time, situation; HEENT: normocephalic, atraumatic, no conjunctival injection, no scleral icterus ; oral mucosa moist; neck supple, no LAD, normal ROM RESPIRATORY: no accessory muscle use, no increased WOB, good air entry bilaterally; no wheezes, rales, rhonchi; no inspiratory crackles CARDIO: no JVD; RRR; no systolic murmur; no tachycardia VASCULAR: no carotid bruit; no abdominal bruit; no pallor; 2+ radial, GI: soft; nondistended; normal bowel sounds; no rebound, rigidity, guarding; nontender NEURO: normal patella reflexes; normal sensation; normal motor function; MSK: 5/5 strength; normal ROM hips; ambulatory without assistance; no tenderness EXTREMITIES: no calf tender; no palpable cords in calf; no clubbing, cyanosis , pedal edema PSYCH: normal affect, normal mood SKIN: warm; moist; no petechiae; no telengectasias; no jaundice; no rash Results Laboratory Results: 08/10/16 07:06 08/10/16 07:06 08/08/16 08/10/16 08/10/16 05:43 07:06 07:06 WBC 10.8 H RBC 2.47 L Hgb 8.5 L Hct 24.6 L MCV 100 H MCH 34.4 H MCHC 34.5 RDW 16.7 H Plt Count 114 L Seg Neutrophils % Not Reportable Lymphocytes % Not Reportable Monocytes % Not Reportable Eosinophils % Not Reportable Basophils % Not Reportable Absolute Neutrophils Not Reportable Absolute Lymphocytes Not Reportable Absolute Monocytes Not Reportable Absolute Eosinophils Not Reportable Absolute Basophils Not Reportable Sodium 144.0 Potassium 5.6 H Chloride 114 H Carbon Dioxide 18 L Anion Gap 12 BUN 52 H Creatinine 5.66 H Est GFR ( Amer) 12 L Est GFR (Non-Af Amer) 10 L Glucose 137 H Uric Acid 8.9 H Calcium 8.5 Phosphorus 7.3 H Magnesium 1.8 Transferrin 136 L Total Bilirubin 0.4 AST 18 ALT 21 Alkaline Phosphatase 87 Total Protein 9.1 H Albumin 3.1 L Impressions: Skeletal Survey 08/10/16 00:00 IMPRESSION: NO WORRISOME BONE LESIONS. Assessment & Plan - Diagnosis (1) Acute renal failure Qualifiers: Acute renal failure type: unspecified Qualified Code(s): N17.9 - Acute kidney failure, unspecified Is this a current diagnosis for this admission?: YesPlan: Worse. Likely prerenal but looking more and more like an ATN, given slow recovery of filtration/function. continue IV fluids at a lower rate. renal ultrasound negative for obstruction. Strict I's and O's. Nephrology consulted for further recommendations. Case discussed with Dr. Chaudhry who is considering renal biopsy if his numbers fail to improve. (2) Dehydration Is this a current diagnosis for this admission?: Yes (3) Hyperkalemia Is this a current diagnosis for this admission?: YesPlan: Worse. Likely secondary to acute renal failure. No EKG changes noted. Treat again with IV insulin/D50 and Kayexalate. (4) Vomiting Qualifiers: Vomiting type: unspecified Is this a current diagnosis for this admission?: YesPlan: Improved. suspect viral enteritis. ct a/p unrevealing. Continue PPI therapy twice a day and continue to monitor. (5) Macrocytic anemia Is this a current diagnosis for this admission?: YesPlan: Stable H&H. No evidence for blood loss. Possibly nutrition related. Anemia workup underway. (6) Monocytosis Is this a current diagnosis for this admission?: YesPlan: Fluctuating. Overall clinical picture is Worrisome for viral syndrome. However , given his slow improvement and multiple abnormalities on CBC I discussed case with Dr. Acosta who will see in consultation. - Time Time Spent with patient: 35 or more minutes Medications reviewed and adjusted accordingly: Yes Within: within 72 hours
--- NOTE | 2016-08-10 18:53 | PDOC PROGRESS REPORT ---
Subjective Progress Note for:: 08/10/16 Subjective:: Patient was seen this morning. He is up and eating his breakfast.. He has a smile on his face. He feels overall better.He denies any history of chest pain shortness of breath. His nausea is much improved as seen by his enjoyment of his breakfast. No history of any fever chills. He has got a good urine output which is encouraging. Labs were reviewed with the patient which shows BUN/ creatinine are better than from yesterday. His potassium is high at 5.6. Physical Exam Vital Signs: Temp Pulse Resp BP Pulse Ox 98.0 F 81 20 142/70 H 100 08/10/16 15:11 08/10/16 15:11 08/10/16 15:11 08/10/16 15:11 08/10/16 15:11 Intake & Output 08/09/16 08/10/16 08/11/16 06:59 06:59 06:59 Intake Total 5070 3470 474 Output Total 950 1775 600 Balance 4120 1695 -126 Weight 96.4 kg 100.3 kg General appearance: PRESENT: no acute distress Respiratory exam: PRESENT: clear to auscultation gloria. ABSENT: crackles, rhonchi Cardiovascular exam: PRESENT: +S1, +S2 GI/Abdominal exam: PRESENT: normal bowel sounds, soft. ABSENT: distended, firm , organomegaly, tenderness Extremities exam: ABSENT: pedal edema Neurological exam: PRESENT: alert, awake, oriented to person, oriented to place , oriented to time Results Laboratory Results: 08/10/16 07:06 08/10/16 07:06 08/10/16 08/10/16 07:06 07:06 WBC 10.8 H RBC 2.47 L Hgb 8.5 L Hct 24.6 L MCV 100 H MCH 34.4 H MCHC 34.5 RDW 16.7 H Plt Count 114 L Seg Neutrophils % Not Reportable Lymphocytes % Not Reportable Monocytes % Not Reportable Eosinophils % Not Reportable Basophils % Not Reportable Absolute Neutrophils Not Reportable Absolute Lymphocytes Not Reportable Absolute Monocytes Not Reportable Absolute Eosinophils Not Reportable Absolute Basophils Not Reportable Sodium 144.0 Potassium 5.6 H Chloride 114 H Carbon Dioxide 18 L Anion Gap 12 BUN 52 H Creatinine 5.66 H Est GFR ( Amer) 12 L Est GFR (Non-Af Amer) 10 L Glucose 137 H Uric Acid 8.9 H Calcium 8.5 Phosphorus 7.3 H Magnesium 1.8 Total Bilirubin 0.4 AST 18 ALT 21 Alkaline Phosphatase 87 Total Protein 9.1 H Albumin 3.1 L Impressions: Renal Ultrasound 08/07/16 00:00 IMPRESSION: NORMAL RENAL AND BLADDER ULTRASOUND. Abdomen/Pelvis CT 08/09/16 00:00 IMPRESSION: 1. Noncontrast study reveals no acute or suspicious abdominopelvic abnormality. As described above, oral contrast was not given due to technical error. Study can be repeated with oral contrast if felt to be clinically warranted. As assessed, however no bowel pathology evident. No hernia. Skeletal Survey 08/10/16 00:00 IMPRESSION: NO WORRISOME BONE LESIONS. Assessment & Plan - Diagnosis (1) Hyperkalemia Is this a current diagnosis for this admission?: YesPlan: Being treated with Kayexalate. Monitor. Discussed with / hospitalist. Continue with IV fluids. (2) Vomiting Qualifiers: Vomiting type: unspecified Is this a current diagnosis for this admission?: Yes (3) Acute renal failure Qualifiers: Acute renal failure type: unspecified Qualified Code(s): N17.9 - Acute kidney failure, unspecified Is this a current diagnosis for this admission?: YesPlan: Persistent elevation of renal numbers in spite of adequate ongoing hydration.Secondary to dehydration and possible naproxen. Renal ultrasound negative for any issues. Continue with appropriate hydration. Hemodynamically stable. Expect hopefully complete recovery in the next few days.However given his anemia and such we also discussed the possibility of doing a renal biopsy and we will see how his labs are looking tomorrow before we make that decision. I discussed the procedure of renal biopsy including his complications of bleeding and rare chances of nephrectomy. (4) Dehydration Is this a current diagnosis for this admission?: YesPlan: On IV saline and continue the present rate.
[2016-08-10] MEDS: NORMAL SALINE 1000 ML 1,000 ML IV PRN (22:47)
[2016-08-11] MEDS: ONDANSETRON HCL INJ/PF 4 MG/2 ML SDV IV PRN (02:43)
[2016-08-11 06:40] LABS: ABSOLUTE LYMPHOCYTES (AUTO) 1.1 10^3/uL (0.5-4.7); ABSOLUTE MONOCYTES (AUTO) 1.4 10^3/uL (0.1-1.4); ABSOLUTE NEUT (AUTO) 7.3 10^3/uL (1.7-8.2); BASOPHILS % (AUTO) 0.2 % (0-2); EOSINOPHILS % (AUTO) 0.4 % (0-6); HGB HCT DIFFERENCE 1.3; LYMPHOCYTES % (AUTO) 10.8 % (13-45); MEAN CORPUSCULAR HEMOGLOBIN 35.1 pg (27.0-33.4); MEAN CORPUSCULAR HGB CONC 35.3 g/dL (32.0-36.0); MEAN CORPUSCULAR VOLUME 100 fl (80-97); RED BLOOD COUNT 2.01 10^6/uL (4.35-5.55); SEGMENTED NEUTROPHILS % (AUTO) 74.6 % (42-78); WHITE BLOOD COUNT 9.9 10^3/uL (4.0-10.5)
[2016-08-11 06:46] LABS: HEMOGLOBIN 7.1 g/dL (13.5-17.0)
[2016-08-11 06:54] LABS: ALANINE AMINOTRANSFERASE 20 U/L (21-72); ALBUMIN 2.7 g/dL (3.5-5.0); ALKALINE PHOSPHATASE 74 U/L (38-126); ANION GAP 12 (5-19); ASPARTATE AMINO TRANSFERASE 15 U/L (17-59); BILIRUBIN,DIRECT 0.3 mg/dL (0.0-0.4); BILIRUBIN,TOTAL 0.5 mg/dL (0.2-1.3); BLOOD UREA NITROGEN 59 mg/dL (7-20); CARBON DIOXIDE 18 mmol/L (22-30); CHLORIDE 115 mmol/L (98-107); CREATININE RESULT 5.11 mg/dL (0.52-1.25); GLUCOSE 103 mg/dL (75-110); MAGNESIUM 1.9 mg/dL (1.6-2.3); SODIUM 144.5 mmol/L (137-145); TOTAL PROTEIN 7.8 g/dL (6.3-8.2)
[2016-08-11 07:05] LABS: POTASSIUM 4.6 mmol/L (3.6-5.0)
[2016-08-11] MEDS: PANTOPRAZOLE SODIUM 40 MG VIAL IV SCH ×2 (09:23→22:57)
[2016-08-11] MEDS: SODIUM BICARBONATE 650 MG TABLET PO SCH ×2 (09:23→22:56)
[2016-08-11] MEDS ORDERED: ACETAMINOPHEN 325 MG TABLET PO PRN (09:27)
[2016-08-11] MEDS ORDERED: DEXAMETHASONE SOD PHOSPHATE 20 MG in DEXTROSE 5%-WATER 50 ML IV PRN (09:28)
[2016-08-11 10:17] LABS: HEMATOCRIT 22.7 % (37.9-51.0); HGB HCT DIFFERENCE 0.4; MEAN CORPUSCULAR HEMOGLOBIN 34.3 pg (27.0-33.4); MEAN CORPUSCULAR VOLUME 101 fl (80-97); RED BLOOD COUNT 2.25 10^6/uL (4.35-5.55); RED CELL DISTRIBUTION WIDTH 16.9 % (11.5-14.0); WHITE BLOOD COUNT 10.9 10^3/uL (4.0-10.5)
[2016-08-11 10:21] LABS: HEMOGLOBIN 7.7 g/dL (13.5-17.0); PARTIAL THROMBOPLASTIN TIME 25.7 SEC (23.5-35.8); PROTHROMBIN TIME 15.2 SEC (11.4-15.4)
[2016-08-11 10:22] LABS: FIBRINOGEN 278 mg/dL (209-497)
[2016-08-11 10:46] LABS: URIC ACID 8.6 mg/dL (3.5-8.5)
[2016-08-11 10:52] LABS: BAND NEUTROPHILS % (MANUAL) 1 % (3-5); BASOPHILS % (MANUAL) 0 % (0-2); EOSINOPHILS % (MANUAL) 0 % (0-6); LYMPHOCYTES % (MANUAL) 10 % (13-45); TOTAL CELLS COUNTED 100
[2016-08-11 10:56] LABS: ANISOCYTOSIS 1+; TOXIC GRANULATION SLIGHT
[2016-08-11] MEDS ORDERED: FENTANYL CITRATE INJ/PF 100 MCG/2 ML AMPUL ONE (12:53)
--- NOTE | 2016-08-11 16:51 | PDOC PROGRESS REPORT ---
Subjective Progress Note for:: 08/11/16 Subjective:: Patient was seen today. He is feeling weak. He states he had an episode of bleeding yesterday when his line was discontinued and he had called to stop the bleeding and he did lose some blood. He at times has orthostasis. He denies any history of chest pain shortness of breath. No history of any fever chills. His vomiting is resolved. No history of any diarrhea, skin lesions, polyarthralgia. Labs were reviewed with the patient which shows BUN/creatinine relatively static. Potassium is resolved. However concerning is that his drop in his hemoglobin and his dropping platelets. No mention of schistocytes on the peripheral smear on the automated counter. Discussed this with Dr. Acosta heme oncologist later with Dr. Vieira /hospitalist.Dr. Acosta is planning to do bone marrow biopsy especially since we do not have the electrophoresis reports in spite of a few days. She does not see any evidences of hemolysis of the moment and but she is willing to get labs cooking on this. Physical Exam Vital Signs: Temp Pulse Resp BP Pulse Ox 98.4 F 70 19 145/90 H 100 08/11/16 14:52 08/11/16 14:52 08/11/16 14:52 08/11/16 14:52 08/11/16 14:52 Intake & Output 08/10/16 08/11/16 08/12/16 06:59 06:59 06:59 Intake Total 3470 2924 210 Output Total 1775 1060 Balance 1695 1864 210 Weight 100.3 kg 101.2 kg General appearance: PRESENT: no acute distress Respiratory exam: PRESENT: clear to auscultation gloria, symmetrical. ABSENT: crackles, rhonchi Cardiovascular exam: PRESENT: +S1, +S2 GI/Abdominal exam: PRESENT: normal bowel sounds, soft. ABSENT: distended, firm , organomegaly, tenderness Extremities exam: ABSENT: pedal edema Neurological exam: PRESENT: alert, oriented to person, oriented to place, oriented to time Skin exam: ABSENT: cyanosis, dry, erythema, mottled, rash Results Laboratory Results: 08/11/16 09:35 08/11/16 05:37 08/11/16 08/11/16 08/11/16 05:37 05:37 09:35 WBC 9.9 RBC 2.01 L Hgb 7.1 L Hct 20.0 L MCV 100 H MCH 35.1 H MCHC 35.3 RDW 17.0 H Plt Count 88 L Seg Neutrophils % 74.6 Lymphocytes % 10.8 L Monocytes % 14.0 H Eosinophils % 0.4 Basophils % 0.2 Absolute Neutrophils 7.3 Absolute Lymphocytes 1.1 Absolute Monocytes 1.4 Absolute Eosinophils 0.0 Absolute Basophils 0.0 Retic Count (auto) Absolute Retic Sodium 144.5 Potassium 4.6 D Chloride 115 H Carbon Dioxide 18 L Anion Gap 12 BUN 59 H Creatinine 5.11 H Est GFR ( Amer) 14 L Est GFR (Non-Af Amer) 12 L Glucose 103 Uric Acid Calcium 8.0 L Magnesium 1.9 Total Bilirubin 0.5 AST 15 L ALT 20 L Alkaline Phosphatase 74 Total Protein 7.8 Albumin 2.7 L Blood Type O NEGATIVE Antibody Screen NEGATIVE 08/11/16 08/11/16 09:35 09:35 WBC 10.9 H RBC 2.25 L Hgb 7.7 L Hct 22.7 L MCV 101 H MCH 34.3 H MCHC 34.0 RDW 16.9 H Plt Count 103 L Seg Neutrophils % Not Reportable Lymphocytes % Not Reportable Monocytes % Not Reportable Eosinophils % Not Reportable Basophils % Not Reportable Absolute Neutrophils Not Reportable Absolute Lymphocytes Not Reportable Absolute Monocytes Not Reportable Absolute Eosinophils Not Reportable Absolute Basophils Not Reportable Retic Count (auto) 1.33 Absolute Retic 0.030 Sodium Potassium Chloride Carbon Dioxide Anion Gap BUN Creatinine Est GFR ( Amer) Est GFR (Non-Af Amer) Glucose Uric Acid 8.6 H Calcium Magnesium Total Bilirubin AST ALT Alkaline Phosphatase Total Protein Albumin Blood Type Antibody Screen Impressions: Renal Ultrasound 08/07/16 00:00 IMPRESSION: NORMAL RENAL AND BLADDER ULTRASOUND. Abdomen/Pelvis CT 08/09/16 00:00 IMPRESSION: 1. Noncontrast study reveals no acute or suspicious abdominopelvic abnormality. As described above, oral contrast was not given due to technical error. Study can be repeated with oral contrast if felt to be clinically warranted. As assessed, however no bowel pathology evident. No hernia. Skeletal Survey 08/10/16 00:00 IMPRESSION: NO WORRISOME BONE LESIONS. Bone Biopsy CT 08/11/16 00:00 IMPRESSION: CT GUIDED BIOPSY OF THE RIGHT POSTERIOR ILIAC CREST BONE MARROW PERFORMED WITHOUT IMMEDIATE COMPLICATION. PATHOLOGY PENDING. Assessment & Plan - Diagnosis (1) Hyperkalemia Is this a current diagnosis for this admission?: YesPlan: Resolved. (2) Vomiting Qualifiers: Vomiting type: unspecified Is this a current diagnosis for this admission?: Yes (3) Acute renal failure Qualifiers: Acute renal failure type: unspecified Qualified Code(s): N17.9 - Acute kidney failure, unspecified Is this a current diagnosis for this admission?: YesPlan: Relatively the same even though there is a minor improvement. Patient is nonoliguric. However this dropping hemoglobin and plate and from a cytopenia one is concerned about TTP/HUS. Unfortunately cannot do a renal biopsy given his dropping platelets and his prolonged bleeding yesterday. We will send for [id number] in the meanwhile.I did discuss the case with Dr. Acosta steel turner and she thinks is less likely to be the case because of lack of evidences of hemolysis. She is going to ask for the peripheral smear and get labs cooking to rule out him hemolysis. However if there is any evidence of schistocytes and the patient needs to be transferred for plasmapheresis and this was discussed with Dr. Vieira /hospitalist. (4) Dehydration Is this a current diagnosis for this admission?: Yes (5) Thrombocytopenia Plan: Patient had prolonged bleeding yesterday with the removal of his peripheral line. Discussed the possibility of HUS/TTP with Dr. Acosta. We will get Adamts 13 levels done in the meanwhile. If any evidences of schistocytes on peripheral smear as per earlier discussion the patient needs to be transferred for plasmapheresis. (6) Macrocytic anemia Is this a current diagnosis for this admission?: YesPlan: As per discussions with Dr. Acosta.
[2016-08-11 17:37] LABS: GAMMA GLOBULIN URINE 91.4 % (.); M-SPIKE % UR 85.4 % (Not Observed)
--- NOTE | 2016-08-11 18:07 | PDOC PROGRESS REPORT ---
Subjective Progress Note for:: 08/11/16 Subjective:: Patient feels well and does not look acutely ill despite abnormal labs no fever , chills CP or SOB Physical Exam Vital Signs: Temp Pulse Resp BP Pulse Ox 97.6 F 77 16 158/89 H 100 08/11/16 17:35 08/11/16 17:35 08/11/16 17:35 08/11/16 17:35 08/11/16 17:35 Intake & Output 08/10/16 08/11/16 08/12/16 00:59 00:59 00:59 Intake Total 4370 3324 2246 Output Total 800 2235 Balance 3570 1089 2246 Weight 100.3 kg 101.2 kg General appearance: PRESENT: no acute distress, well-developed, well-nourished Head exam: PRESENT: atraumatic, normocephalic Eye exam: PRESENT: conjunctiva pink, EOMI, PERRLA. ABSENT: scleral icterus Ear exam: PRESENT: normal external ear exam Mouth exam: PRESENT: moist, tongue midline Neck exam: ABSENT: carotid bruit, JVD, lymphadenopathy, thyromegaly Respiratory exam: PRESENT: clear to auscultation gloria. ABSENT: rales, rhonchi, wheezes Cardiovascular exam: PRESENT: RRR. ABSENT: diastolic murmur, rubs, systolic murmur Pulses: PRESENT: normal dorsalis pedis pul Vascular exam: PRESENT: normal capillary refill GI/Abdominal exam: PRESENT: normal bowel sounds, soft. ABSENT: distended, guarding, mass, organolmegaly, rebound, tenderness Rectal exam: PRESENT: deferred Extremities exam: PRESENT: full ROM. ABSENT: calf tenderness, clubbing, pedal edema Neurological exam: PRESENT: alert, awake, oriented to person, oriented to place , oriented to time, oriented to situation, CN II-XII grossly intact. ABSENT: motor sensory deficit Psychiatric exam: PRESENT: appropriate affect, normal mood. ABSENT: homicidal ideation, suicidal ideation Skin exam: PRESENT: dry, intact, warm. ABSENT: cyanosis, rash Results Laboratory Results: 08/11/16 09:35 08/11/16 05:37 08/11/16 08/11/16 08/11/16 05:37 05:37 09:35 WBC 9.9 RBC 2.01 L Hgb 7.1 L Hct 20.0 L MCV 100 H MCH 35.1 H MCHC 35.3 RDW 17.0 H Plt Count 88 L Seg Neutrophils % 74.6 Lymphocytes % 10.8 L Monocytes % 14.0 H Eosinophils % 0.4 Basophils % 0.2 Absolute Neutrophils 7.3 Absolute Lymphocytes 1.1 Absolute Monocytes 1.4 Absolute Eosinophils 0.0 Absolute Basophils 0.0 Retic Count (auto) Absolute Retic Sodium 144.5 Potassium 4.6 D Chloride 115 H Carbon Dioxide 18 L Anion Gap 12 BUN 59 H Creatinine 5.11 H Est GFR ( Amer) 14 L Est GFR (Non-Af Amer) 12 L Glucose 103 Uric Acid Calcium 8.0 L Magnesium 1.9 Total Bilirubin 0.5 AST 15 L ALT 20 L Alkaline Phosphatase 74 Total Protein 7.8 Albumin 2.7 L Blood Type O NEGATIVE Antibody Screen NEGATIVE 08/11/16 08/11/16 09:35 09:35 WBC 10.9 H RBC 2.25 L Hgb 7.7 L Hct 22.7 L MCV 101 H MCH 34.3 H MCHC 34.0 RDW 16.9 H Plt Count 103 L Seg Neutrophils % Not Reportable Lymphocytes % Not Reportable Monocytes % Not Reportable Eosinophils % Not Reportable Basophils % Not Reportable Absolute Neutrophils Not Reportable Absolute Lymphocytes Not Reportable Absolute Monocytes Not Reportable Absolute Eosinophils Not Reportable Absolute Basophils Not Reportable Retic Count (auto) 1.33 Absolute Retic 0.030 Sodium Potassium Chloride Carbon Dioxide Anion Gap BUN Creatinine Est GFR ( Amer) Est GFR (Non-Af Amer) Glucose Uric Acid 8.6 H Calcium Magnesium Total Bilirubin AST ALT Alkaline Phosphatase Total Protein Albumin Blood Type Antibody Screen Impressions: Renal Ultrasound 08/07/16 00:00 IMPRESSION: NORMAL RENAL AND BLADDER ULTRASOUND. Abdomen/Pelvis CT 08/09/16 00:00 IMPRESSION: 1. Noncontrast study reveals no acute or suspicious abdominopelvic abnormality. As described above, oral contrast was not given due to technical error. Study can be repeated with oral contrast if felt to be clinically warranted. As assessed, however no bowel pathology evident. No hernia. Skeletal Survey 08/10/16 00:00 IMPRESSION: NO WORRISOME BONE LESIONS. Bone Biopsy CT 08/11/16 00:00 IMPRESSION: CT GUIDED BIOPSY OF THE RIGHT POSTERIOR ILIAC CREST BONE MARROW PERFORMED WITHOUT IMMEDIATE COMPLICATION. PATHOLOGY PENDING. Assessment & Plan - Diagnosis (1) Anemia Qualifiers: Anemia type: unspecified type Qualified Code(s): D64.9 - Anemia, unspecified Is this a current diagnosis for this admission?: Yes (2) Acute renal failure Qualifiers: Acute renal failure type: unspecified Qualified Code(s): N17.9 - Acute kidney failure, unspecified Is this a current diagnosis for this admission?: YesPlan: improving ; continue hydration (3) Thrombocytopenia Is this a current diagnosis for this admission?: Yes - Time Time Spent with patient: management as per Dr Acosta and Isidoro etiology anemia still unclear awaiting results bone marrow biopsy Time Spent with patient: 25-34 minutes
[2016-08-11 22:36] LABS: HEMATOCRIT 29.5 % (37.9-51.0); HGB HCT DIFFERENCE 1.1; MEAN CORPUSCULAR HEMOGLOBIN 33.3 pg (27.0-33.4); MEAN CORPUSCULAR HGB CONC 34.4 g/dL (32.0-36.0); RED BLOOD COUNT 3.06 10^6/uL (4.35-5.55); RED CELL DISTRIBUTION WIDTH 18.8 % (11.5-14.0); WHITE BLOOD COUNT 10.8 10^3/uL (4.0-10.5)
[2016-08-11 22:45] LABS: HEMOGLOBIN 10.2 g/dL (13.5-17.0)
[2016-08-11 22:46] LABS: MEAN CORPUSCULAR VOLUME 97 fl (80-97)
[2016-08-12 06:17] LABS: ABSOLUTE MONOCYTES (AUTO) 0.6 10^3/uL (0.1-1.4); ABSOLUTE NEUT (AUTO) 8.1 10^3/uL (1.7-8.2); BASOPHILS % (AUTO) 0.1 % (0-2); EOSINOPHILS % (AUTO) 0.1 % (0-6); HEMATOCRIT 26.7 % (37.9-51.0); HEMOGLOBIN 9.4 g/dL (13.5-17.0); HGB HCT DIFFERENCE 1.5; LYMPHOCYTES % (AUTO) 10.4 % (13-45); MEAN CORPUSCULAR HEMOGLOBIN 33.7 pg (27.0-33.4); MEAN CORPUSCULAR VOLUME 96 fl (80-97); MONOCYTES % (AUTO) 6.2 % (3-13); RED BLOOD COUNT 2.78 10^6/uL (4.35-5.55); RED CELL DISTRIBUTION WIDTH 18.8 % (11.5-14.0); SEGMENTED NEUTROPHILS % (AUTO) 83.2 % (42-78); WHITE BLOOD COUNT 9.8 10^3/uL (4.0-10.5)
[2016-08-12 06:18] LABS: ALANINE AMINOTRANSFERASE 28 U/L (21-72); ALBUMIN 3.1 g/dL (3.5-5.0); ALKALINE PHOSPHATASE 76 U/L (38-126); ANION GAP 13 (5-19); ASPARTATE AMINO TRANSFERASE 19 U/L (17-59); BILIRUBIN,DIRECT 0.2 mg/dL (0.0-0.4); BILIRUBIN,TOTAL 0.4 mg/dL (0.2-1.3); BLOOD UREA NITROGEN 63 mg/dL (7-20); CALCIUM 8.2 mg/dL (8.4-10.2); CARBON DIOXIDE 17 mmol/L (22-30); CHLORIDE 114 mmol/L (98-107); CREATININE RESULT 5.12 mg/dL (0.52-1.25); GLUCOSE 125 mg/dL (75-110); POTASSIUM 4.8 mmol/L (3.6-5.0); SODIUM 144.1 mmol/L (137-145); TOTAL PROTEIN 8.2 g/dL (6.3-8.2)
--- NOTE | 2016-08-12 07:15 | PDOC PROGRESS REPORT ---
Subjective Progress Note for:: 08/11/16 Subjective:: Feeling well but did have an episode of bleeding with the IV removal yesterday. Informed of negative skeletal survey. Physical Exam Vital Signs: Temp Pulse Resp BP Pulse Ox 97.8 F 51 L 17 136/82 H 99 08/12/16 04:46 08/12/16 04:46 08/12/16 04:46 08/12/16 04:46 08/12/16 04:46 Intake & Output 08/11/16 08/12/16 08/13/16 06:59 06:59 06:59 Intake Total 2924 3406 Output Total 1060 1975 Balance 1864 1431 Weight 101.2 kg 101 kg General appearance: PRESENT: no acute distress Head exam: PRESENT: atraumatic, normocephalic Eye exam: PRESENT: EOMI, PERRLA Mouth exam: PRESENT: moist Respiratory exam: PRESENT: clear to auscultation gloria, unlabored Cardiovascular exam: PRESENT: RRR GI/Abdominal exam: PRESENT: normal bowel sounds, soft Neurological exam: PRESENT: alert, awake, oriented to person, oriented to place , oriented to time, oriented to situation, CN II-XII grossly intact, normal gait Psychiatric exam: PRESENT: appropriate affect Skin exam: PRESENT: other - Ecchymosis at IV site on the Left wrist Results Laboratory Results: 08/12/16 05:31 08/12/16 05:31 08/11/16 08/11/16 08/11/16 05:37 05:37 09:35 WBC 9.9 RBC 2.01 L Hgb 7.1 L Hct 20.0 L MCV 100 H MCH 35.1 H MCHC 35.3 RDW 17.0 H Plt Count 88 L Seg Neutrophils % 74.6 Lymphocytes % 10.8 L Monocytes % 14.0 H Eosinophils % 0.4 Basophils % 0.2 Absolute Neutrophils 7.3 Absolute Lymphocytes 1.1 Absolute Monocytes 1.4 Absolute Eosinophils 0.0 Absolute Basophils 0.0 Retic Count (auto) Absolute Retic Sodium 144.5 Potassium 4.6 D Chloride 115 H Carbon Dioxide 18 L Anion Gap 12 BUN 59 H Creatinine 5.11 H Est GFR ( Amer) 14 L Est GFR (Non-Af Amer) 12 L Glucose 103 Uric Acid Calcium 8.0 L Magnesium 1.9 Total Bilirubin 0.5 AST 15 L ALT 20 L Alkaline Phosphatase 74 Total Protein 7.8 Albumin 2.7 L Blood Type O NEGATIVE Antibody Screen NEGATIVE 08/11/16 08/11/16 08/11/16 09:35 09:35 22:25 WBC 10.9 H 10.8 H RBC 2.25 L 3.06 L Hgb 7.7 L 10.2 L D Hct 22.7 L 29.5 L MCV 101 H 97 D MCH 34.3 H 33.3 MCHC 34.0 34.4 RDW 16.9 H 18.8 H Plt Count 103 L 100 L Seg Neutrophils % Not Reportable Lymphocytes % Not Reportable Monocytes % Not Reportable Eosinophils % Not Reportable Basophils % Not Reportable Absolute Neutrophils Not Reportable Absolute Lymphocytes Not Reportable Absolute Monocytes Not Reportable Absolute Eosinophils Not Reportable Absolute Basophils Not Reportable Retic Count (auto) 1.33 Absolute Retic 0.030 Sodium Potassium Chloride Carbon Dioxide Anion Gap BUN Creatinine Est GFR ( Amer) Est GFR (Non-Af Amer) Glucose Uric Acid 8.6 H Calcium Magnesium Total Bilirubin AST ALT Alkaline Phosphatase Total Protein Albumin Blood Type Antibody Screen 08/12/16 08/12/16 05:31 05:31 WBC 9.8 RBC 2.78 L Hgb 9.4 L Hct 26.7 L MCV 96 MCH 33.7 H MCHC 35.0 RDW 18.8 H Plt Count 89 L Seg Neutrophils % 83.2 H Lymphocytes % 10.4 L Monocytes % 6.2 Eosinophils % 0.1 Basophils % 0.1 Absolute Neutrophils 8.1 Absolute Lymphocytes 1.0 Absolute Monocytes 0.6 Absolute Eosinophils 0.0 Absolute Basophils 0.0 Retic Count (auto) Absolute Retic Sodium 144.1 Potassium 4.8 Chloride 114 H Carbon Dioxide 17 L Anion Gap 13 BUN 63 H Creatinine 5.12 H Est GFR ( Amer) 14 L Est GFR (Non-Af Amer) 11 L Glucose 125 H Uric Acid Calcium 8.2 L Magnesium Total Bilirubin 0.4 AST 19 ALT 28 Alkaline Phosphatase 76 Total Protein 8.2 Albumin 3.1 L Blood Type Antibody Screen Impressions: Renal Ultrasound 08/07/16 00:00 IMPRESSION: NORMAL RENAL AND BLADDER ULTRASOUND. Abdomen/Pelvis CT 08/09/16 00:00 IMPRESSION: 1. Noncontrast study reveals no acute or suspicious abdominopelvic abnormality. As described above, oral contrast was not given due to technical error. Study can be repeated with oral contrast if felt to be clinically warranted. As assessed, however no bowel pathology evident. No hernia. Skeletal Survey 08/10/16 00:00 IMPRESSION: NO WORRISOME BONE LESIONS. Bone Biopsy CT 08/11/16 00:00 IMPRESSION: CT GUIDED BIOPSY OF THE RIGHT POSTERIOR ILIAC CREST BONE MARROW PERFORMED WITHOUT IMMEDIATE COMPLICATION. PATHOLOGY PENDING. Assessment & Plan - Diagnosis (1) Acute renal failure Qualifiers: Acute renal failure type: unspecified Qualified Code(s): N17.9 - Acute kidney failure, unspecified Is this a current diagnosis for this admission?: YesPlan: No clinical signs or lab or TTP. Specifically no signs of schistocytes or hemolysis which was confirmed with the pathologists or signs of blasts. Will proceed with a bone marrow biopsy and check coags given his bleeding yesterday. Discussed with Dr. Chaudhry. (2) Macrocytic anemia Is this a current diagnosis for this admission?: YesPlan: Will transfuse and premed with Decadron in case of hemolysis but no signs on his smear or labs. Will proceed with a bone marrow today. In addition, send out flow cytometry on peripheral blood and marrow. (3) Thrombocytopenia Is this a current diagnosis for this admission?: YesPlan: Will await marrow results but hold heparin and check other coags. - Time Time Spent with patient: 35 or more minutes Critical Time spent with patient: 35 or more minutes Medications reviewed and adjusted accordingly: Yes - Inpatient Certification Medical Necessity: Need Close Monitoring Due to Risk of Patient Decompensation, Need For Continuous Telemetry Monitoring
[2016-08-12 07:32] LABS: PARTIAL THROMBOPLASTIN TIME 25.8 SEC (23.5-35.8); PROTHROMBIN TIME 15.8 SEC (11.4-15.4)
[2016-08-12] MEDS: PANTOPRAZOLE SODIUM 40 MG VIAL IV SCH (10:56)
[2016-08-12] MEDS: SODIUM BICARBONATE 650 MG TABLET PO SCH ×2 (10:56→21:26)
[2016-08-12] MEDS: METHYLPREDNISOLONE INJ 125 MG/2 ML SDV IV SCH (10:56)
[2016-08-12 11:21] LABS: HAPTOGLOBIN 152 mg/dL (34-200)
--- NOTE | 2016-08-12 13:06 | PDOC PROGRESS REPORT ---
Subjective Progress Note for:: 08/12/16 Subjective:: Feeling extremely well and reports that he did well with his bone marrow biopsy. He does state that his appetite is better with the steroids from yesterday. Physical Exam Vital Signs: Temp Pulse Resp BP Pulse Ox 97.8 F 71 19 144/74 H 100 08/12/16 11:21 08/12/16 11:21 08/12/16 11:21 08/12/16 11:21 08/12/16 11:21 Intake & Output 08/11/16 08/12/16 08/13/16 06:59 06:59 06:59 Intake Total 2924 3406 Output Total 1060 1975 Balance 1864 1431 Weight 101.2 kg 101 kg General appearance: PRESENT: no acute distress Head exam: PRESENT: atraumatic, normocephalic Eye exam: PRESENT: EOMI, PERRLA Mouth exam: PRESENT: moist, tongue midline Respiratory exam: PRESENT: clear to auscultation gloria Cardiovascular exam: PRESENT: RRR GI/Abdominal exam: PRESENT: normal bowel sounds Neurological exam: PRESENT: alert, awake, oriented to person, oriented to place , oriented to situation, CN II-XII grossly intact Psychiatric exam: PRESENT: appropriate affect Results Laboratory Results: 08/12/16 05:31 08/12/16 05:31 08/11/16 08/11/16 08/11/16 09:35 09:35 22:25 WBC 10.9 H 10.8 H RBC 2.25 L 3.06 L Hgb 7.7 L 10.2 L D Hct 22.7 L 29.5 L MCV 101 H 97 D MCH 34.3 H 33.3 MCHC 34.0 34.4 RDW 16.9 H 18.8 H Plt Count 103 L 100 L Seg Neutrophils % Lymphocytes % Monocytes % Eosinophils % Basophils % Absolute Neutrophils Absolute Lymphocytes Absolute Monocytes Absolute Eosinophils Absolute Basophils Retic Count (auto) 1.33 Absolute Retic 0.030 Sodium Potassium Chloride Carbon Dioxide Anion Gap BUN Creatinine Est GFR ( Amer) Est GFR (Non-Af Amer) Glucose Calcium Total Bilirubin AST ALT Alkaline Phosphatase Total Protein Albumin Blood Type O NEGATIVE Antibody Screen NEGATIVE 08/12/16 08/12/16 05:31 05:31 WBC 9.8 RBC 2.78 L Hgb 9.4 L Hct 26.7 L MCV 96 MCH 33.7 H MCHC 35.0 RDW 18.8 H Plt Count 89 L Seg Neutrophils % 83.2 H Lymphocytes % 10.4 L Monocytes % 6.2 Eosinophils % 0.1 Basophils % 0.1 Absolute Neutrophils 8.1 Absolute Lymphocytes 1.0 Absolute Monocytes 0.6 Absolute Eosinophils 0.0 Absolute Basophils 0.0 Retic Count (auto) Absolute Retic Sodium 144.1 Potassium 4.8 Chloride 114 H Carbon Dioxide 17 L Anion Gap 13 BUN 63 H Creatinine 5.12 H Est GFR ( Amer) 14 L Est GFR (Non-Af Amer) 11 L Glucose 125 H Calcium 8.2 L Total Bilirubin 0.4 AST 19 ALT 28 Alkaline Phosphatase 76 Total Protein 8.2 Albumin 3.1 L Blood Type Antibody Screen Impressions: Renal Ultrasound 08/07/16 00:00 IMPRESSION: NORMAL RENAL AND BLADDER ULTRASOUND. Abdomen/Pelvis CT 08/09/16 00:00 IMPRESSION: 1. Noncontrast study reveals no acute or suspicious abdominopelvic abnormality. As described above, oral contrast was not given due to technical error. Study can be repeated with oral contrast if felt to be clinically warranted. As assessed, however no bowel pathology evident. No hernia. Skeletal Survey 08/10/16 00:00 IMPRESSION: NO WORRISOME BONE LESIONS. Bone Biopsy CT 08/11/16 00:00 IMPRESSION: CT GUIDED BIOPSY OF THE RIGHT POSTERIOR ILIAC CREST BONE MARROW PERFORMED WITHOUT IMMEDIATE COMPLICATION. PATHOLOGY PENDING. Assessment & Plan - Diagnosis (1) Acute renal failure Qualifiers: Acute renal failure type: unspecified Qualified Code(s): N17.9 - Acute kidney failure, unspecified Is this a current diagnosis for this admission?: YesPlan: Labs without any evidence of hemolysis with a normal LDH, and no evidence of schistocytes on his smear.He is stable with his creatinine although interestingly his uric acid is still slightly elevated. Discussed with Dr. Chaudhry that if the bone marrow is unrevealing then can give DDAVP and platelets before a renal biopsy. (2) Macrocytic anemia Is this a current diagnosis for this admission?: YesPlan: Awaiting flow, IEP/FLC, and marrow results although the retic count indicates marrow not responding well. Will give a trial of steroids while awaiting for results. (3) Thrombocytopenia Is this a current diagnosis for this admission?: YesPlan: See the discussion under anemia
[2016-08-12 13:39] LABS: ALPHA-1-GLOBULIN 0.3 g/dL (0.0-0.4); ALPHA-2-GLOBULIN 3 0.7 g/dL (0.4-1.0); BETA GLOBULIN 0.7 g/dL (0.7-1.3); GLOBULIN TTL 5.4 g/dL (2.2-3.9); IMMUNOGLOBULIN G 4665 mg/dL (700-1600); MONOCLONAL-SPIKE 3.5 g/dL (Not Observed); PROTEIN TOTAL SERUM 8.4 g/dL (6.0-8.5)
--- NOTE | 2016-08-12 16:19 | PDOC PROGRESS REPORT ---
Subjective Progress Note for:: 08/12/16 Subjective:: Patient is doing extremely well Is still totally asymptomatic No shortness of breath no chest pain no fever no chills States that if he was at home he would be morning the lawn Physical Exam Vital Signs: Temp Pulse Resp BP Pulse Ox 97.8 F 46 L 19 144/74 H 100 08/12/16 11:21 08/12/16 14:00 08/12/16 11:21 08/12/16 11:21 08/12/16 11:21 Intake & Output 08/11/16 08/12/16 08/13/16 00:59 00:59 00:59 Intake Total 3324 2956 2350 Output Total 2235 1300 1575 Balance 1089 1656 775 Weight 101.2 kg 101 kg General appearance: PRESENT: no acute distress, well-developed, well-nourished Head exam: PRESENT: atraumatic, normocephalic Eye exam: PRESENT: conjunctiva pink, EOMI, PERRLA. ABSENT: scleral icterus Ear exam: PRESENT: normal external ear exam Mouth exam: PRESENT: moist, tongue midline Neck exam: ABSENT: carotid bruit, JVD, lymphadenopathy, thyromegaly Respiratory exam: PRESENT: clear to auscultation gloria. ABSENT: rales, rhonchi, wheezes Cardiovascular exam: PRESENT: RRR. ABSENT: diastolic murmur, rubs, systolic murmur Pulses: PRESENT: normal dorsalis pedis pul Vascular exam: PRESENT: normal capillary refill GI/Abdominal exam: PRESENT: normal bowel sounds, soft. ABSENT: distended, guarding, mass, organolmegaly, rebound, tenderness Rectal exam: PRESENT: deferred Extremities exam: PRESENT: full ROM. ABSENT: calf tenderness, clubbing, pedal edema Neurological exam: PRESENT: alert, awake, oriented to person, oriented to place , oriented to time, oriented to situation, CN II-XII grossly intact. ABSENT: motor sensory deficit Psychiatric exam: PRESENT: appropriate affect, normal mood. ABSENT: homicidal ideation, suicidal ideation Skin exam: PRESENT: dry, intact, warm. ABSENT: cyanosis, rash Results Laboratory Results: 08/12/16 05:31 08/12/16 05:31 08/11/16 08/11/16 08/12/16 09:35 22:25 05:31 WBC 10.8 H 9.8 RBC 3.06 L 2.78 L Hgb 10.2 L D 9.4 L Hct 29.5 L 26.7 L MCV 97 D 96 MCH 33.3 33.7 H MCHC 34.4 35.0 RDW 18.8 H 18.8 H Plt Count 100 L 89 L Seg Neutrophils % 83.2 H Lymphocytes % 10.4 L Monocytes % 6.2 Eosinophils % 0.1 Basophils % 0.1 Absolute Neutrophils 8.1 Absolute Lymphocytes 1.0 Absolute Monocytes 0.6 Absolute Eosinophils 0.0 Absolute Basophils 0.0 Sodium Potassium Chloride Carbon Dioxide Anion Gap BUN Creatinine Est GFR ( Amer) Est GFR (Non-Af Amer) Glucose Calcium Total Bilirubin AST ALT Alkaline Phosphatase Total Protein Albumin Blood Type O NEGATIVE Antibody Screen NEGATIVE 08/12/16 05:31 WBC RBC Hgb Hct MCV MCH MCHC RDW Plt Count Seg Neutrophils % Lymphocytes % Monocytes % Eosinophils % Basophils % Absolute Neutrophils Absolute Lymphocytes Absolute Monocytes Absolute Eosinophils Absolute Basophils Sodium 144.1 Potassium 4.8 Chloride 114 H Carbon Dioxide 17 L Anion Gap 13 BUN 63 H Creatinine 5.12 H Est GFR ( Amer) 14 L Est GFR (Non-Af Amer) 11 L Glucose 125 H Calcium 8.2 L Total Bilirubin 0.4 AST 19 ALT 28 Alkaline Phosphatase 76 Total Protein 8.2 Albumin 3.1 L Blood Type Antibody Screen Impressions: Renal Ultrasound 08/07/16 00:00 IMPRESSION: NORMAL RENAL AND BLADDER ULTRASOUND. Abdomen/Pelvis CT 08/09/16 00:00 IMPRESSION: 1. Noncontrast study reveals no acute or suspicious abdominopelvic abnormality. As described above, oral contrast was not given due to technical error. Study can be repeated with oral contrast if felt to be clinically warranted. As assessed, however no bowel pathology evident. No hernia. Skeletal Survey 08/10/16 00:00 IMPRESSION: NO WORRISOME BONE LESIONS. Bone Biopsy CT 08/11/16 00:00 IMPRESSION: CT GUIDED BIOPSY OF THE RIGHT POSTERIOR ILIAC CREST BONE MARROW PERFORMED WITHOUT IMMEDIATE COMPLICATION. PATHOLOGY PENDING. Assessment & Plan - Diagnosis (1) Anemia Qualifiers: Anemia type: unspecified type Qualified Code(s): D64.9 - Anemia, unspecified Is this a current diagnosis for this admission?: Yes (2) Acute renal failure Qualifiers: Acute renal failure type: unspecified Qualified Code(s): N17.9 - Acute kidney failure, unspecified Is this a current diagnosis for this admission?: Yes (3) Thrombocytopenia Is this a current diagnosis for this admission?: Yes - Time Time Spent with patient: Workup in progress Continue hydration with normal saline Continue steroids as per Dr. Acosta Follow-up labs in a.m. Time Spent with patient: 25-34 minutes
--- NOTE | 2016-08-12 16:32 | PDOC PROGRESS REPORT ---
Subjective Progress Note for:: 08/12/16 Subjective:: Patient seen in the hospital today. He is looking much better each day I see him. He has got more energy. He was transfused 2 units yesterday. Is also gotten a dose of Decadron [address] Acosta. Patient denies any history of chest pain shortness of breath no history of minimal nausea vomiting. Labs were reviewed with the patient.Hematology and pathology has taken a look at the peripheral smear and there is no evidences to indicate any schistocytes. Other labs do not support hemolysis. Physical Exam Vital Signs: Temp Pulse Resp BP Pulse Ox 97.8 F 46 L 19 144/74 H 100 08/12/16 11:21 08/12/16 14:00 08/12/16 11:21 08/12/16 11:21 08/12/16 11:21 Intake & Output 08/11/16 08/12/16 08/13/16 06:59 06:59 06:59 Intake Total 2924 3406 800 Output Total 1060 1975 900 Balance 1864 1431 -100 Weight 101.2 kg 101 kg General appearance: PRESENT: no acute distress Respiratory exam: PRESENT: clear to auscultation gloria. ABSENT: crackles Cardiovascular exam: PRESENT: +S1, +S2 GI/Abdominal exam: PRESENT: normal bowel sounds, soft. ABSENT: distended, firm , organomegaly, tenderness Extremities exam: ABSENT: pedal edema Neurological exam: PRESENT: alert, awake, oriented to person, oriented to place , oriented to time Skin exam: ABSENT: cyanosis, dry, erythema, mottled, rash Results Laboratory Results: 08/12/16 05:31 08/12/16 05:31 08/11/16 08/11/16 08/12/16 09:35 22:25 05:31 WBC 10.8 H 9.8 RBC 3.06 L 2.78 L Hgb 10.2 L D 9.4 L Hct 29.5 L 26.7 L MCV 97 D 96 MCH 33.3 33.7 H MCHC 34.4 35.0 RDW 18.8 H 18.8 H Plt Count 100 L 89 L Seg Neutrophils % 83.2 H Lymphocytes % 10.4 L Monocytes % 6.2 Eosinophils % 0.1 Basophils % 0.1 Absolute Neutrophils 8.1 Absolute Lymphocytes 1.0 Absolute Monocytes 0.6 Absolute Eosinophils 0.0 Absolute Basophils 0.0 Sodium Potassium Chloride Carbon Dioxide Anion Gap BUN Creatinine Est GFR ( Amer) Est GFR (Non-Af Amer) Glucose Calcium Total Bilirubin AST ALT Alkaline Phosphatase Total Protein Albumin Blood Type O NEGATIVE Antibody Screen NEGATIVE 08/12/16 05:31 WBC RBC Hgb Hct MCV MCH MCHC RDW Plt Count Seg Neutrophils % Lymphocytes % Monocytes % Eosinophils % Basophils % Absolute Neutrophils Absolute Lymphocytes Absolute Monocytes Absolute Eosinophils Absolute Basophils Sodium 144.1 Potassium 4.8 Chloride 114 H Carbon Dioxide 17 L Anion Gap 13 BUN 63 H Creatinine 5.12 H Est GFR ( Amer) 14 L Est GFR (Non-Af Amer) 11 L Glucose 125 H Calcium 8.2 L Total Bilirubin 0.4 AST 19 ALT 28 Alkaline Phosphatase 76 Total Protein 8.2 Albumin 3.1 L Blood Type Antibody Screen Impressions: Renal Ultrasound 08/07/16 00:00 IMPRESSION: NORMAL RENAL AND BLADDER ULTRASOUND. Abdomen/Pelvis CT 08/09/16 00:00 IMPRESSION: 1. Noncontrast study reveals no acute or suspicious abdominopelvic abnormality. As described above, oral contrast was not given due to technical error. Study can be repeated with oral contrast if felt to be clinically warranted. As assessed, however no bowel pathology evident. No hernia. Skeletal Survey 08/10/16 00:00 IMPRESSION: NO WORRISOME BONE LESIONS. Bone Biopsy CT 08/11/16 00:00 IMPRESSION: CT GUIDED BIOPSY OF THE RIGHT POSTERIOR ILIAC CREST BONE MARROW PERFORMED WITHOUT IMMEDIATE COMPLICATION. PATHOLOGY PENDING. Assessment & Plan - Diagnosis (1) Hyperkalemia Is this a current diagnosis for this admission?: Yes (2) Vomiting Qualifiers: Vomiting type: unspecified Is this a current diagnosis for this admission?: Yes (3) Acute renal failure Qualifiers: Acute renal failure type: unspecified Qualified Code(s): N17.9 - Acute kidney failure, unspecified Is this a current diagnosis for this admission?: YesPlan: Stable with no worsening. Nonoliguric. Continue on with hydration and see how he responds over the next day or two. We again did discuss renal biopsy but given his platelets are dropping to 88, I am going to hold off on it. Also encouraging is the fact that the patient continues to make good amounts of urine and is not getting any more worse. Since we have also ruled out hemolysis and therefore HUS/TTP as well. (4) Dehydration Is this a current diagnosis for this admission?: Yes (5) Thrombocytopenia Is this a current diagnosis for this admission?: YesPlan: As per Dr. Acosta (6) Macrocytic anemia Is this a current diagnosis for this admission?: Yes
[2016-08-12] MEDS ORDERED: TEMAZEPAM 15 MG CAPSULE PO PRN (22:00)
[2016-08-13 07:17] LABS: HEMATOCRIT 24.7 % (37.9-51.0); HEMOGLOBIN 8.6 g/dL (13.5-17.0); HGB HCT DIFFERENCE 1.1; MEAN CORPUSCULAR HGB CONC 34.8 g/dL (32.0-36.0); MEAN CORPUSCULAR VOLUME 98 fl (80-97); RED BLOOD COUNT 2.53 10^6/uL (4.35-5.55); RED CELL DISTRIBUTION WIDTH 18.5 % (11.5-14.0); WHITE BLOOD COUNT 10.6 10^3/uL (4.0-10.5)
[2016-08-13 07:33] LABS: IMMUNOGLOBULIN A 14 mg/dL (61-437); IMMUNOGLOBULIN M 5 mg/dL (20-172)
[2016-08-13 07:37] LABS: ALANINE AMINOTRANSFERASE 35 U/L (21-72); ALBUMIN 2.9 g/dL (3.5-5.0); ALKALINE PHOSPHATASE 67 U/L (38-126); ANION GAP 12 (5-19); ASPARTATE AMINO TRANSFERASE 19 U/L (17-59); BILIRUBIN,DIRECT 0.2 mg/dL (0.0-0.4); BILIRUBIN,TOTAL 0.3 mg/dL (0.2-1.3); BLOOD UREA NITROGEN 67 mg/dL (7-20); CALCIUM 8.1 mg/dL (8.4-10.2); CARBON DIOXIDE 16 mmol/L (22-30); CHLORIDE 115 mmol/L (98-107); CREATININE RESULT 4.71 mg/dL (0.52-1.25); GLUCOSE 108 mg/dL (75-110); LDH 442 U/L (313-618); SODIUM 142.9 mmol/L (137-145); TOTAL PROTEIN 7.7 g/dL (6.3-8.2); URIC ACID 7.8 mg/dL (3.5-8.5)
[2016-08-13] MEDS: SODIUM BICARBONATE 650 MG TABLET PO SCH ×2 (09:12→21:44)
[2016-08-13] MEDS: METHYLPREDNISOLONE INJ 125 MG/2 ML SDV IV SCH (09:12)
--- NOTE | 2016-08-13 12:20 | PDOC PROGRESS REPORT ---
Subjective Progress Note for:: 08/13/16 Subjective:: Patient seen this morning in the hospital. He looks happier and very involved. He denies any history of chest pain shortness of breath no history of nausea vomiting. Appetite is getting much back to old old self. No history of any pedal edema. Good urine output. Labs were reviewed which shows improving creatinine. However his hemoglobin and platelets have dropped further. No apparent history of GI bleeds. Labs were reviewed. He has shown M spike and a high IgG levels with lambda chain light chains on his JORGE. Physical Exam Vital Signs: Temp Pulse Resp BP Pulse Ox 97.5 F 51 L 18 161/88 H 98 08/13/16 09:01 08/13/16 09:01 08/13/16 05:24 08/13/16 09:01 08/13/16 09:01 Intake & Output 08/12/16 08/13/16 08/14/16 06:59 06:59 06:59 Intake Total 3406 950 Output Total 1975 1660 Balance 1431 -710 Weight 101 kg 101.3 kg General appearance: PRESENT: no acute distress Respiratory exam: PRESENT: clear to auscultation gloria. ABSENT: crackles, rhonchi Cardiovascular exam: PRESENT: +S1, +S2 GI/Abdominal exam: PRESENT: normal bowel sounds, soft. ABSENT: distended, firm , organomegaly, tenderness Extremities exam: ABSENT: pedal edema Skin exam: ABSENT: dry, erythema, mottled, rash Results Laboratory Results: 08/13/16 06:53 08/13/16 06:53 08/08/16 08/13/16 08/13/16 10:21 06:53 06:53 WBC 10.6 H RBC 2.53 L Hgb 8.6 L Hct 24.7 L MCV 98 H MCH 34.0 H MCHC 34.8 RDW 18.5 H Plt Count 84 L Retic Count (auto) 1.27 Absolute Retic 0.032 Sodium 142.9 Potassium 5.0 Chloride 115 H Carbon Dioxide 16 L Anion Gap 12 BUN 67 H Creatinine 4.71 H Est GFR ( Amer) 15 L Est GFR (Non-Af Amer) 13 L Glucose 108 Uric Acid 7.8 Calcium 8.1 L Total Bilirubin 0.3 AST 19 ALT 35 Alkaline Phosphatase 67 Total Protein 8.4 7.7 Albumin 3.0 2.9 L Impressions: Renal Ultrasound 04/07/17 00:00 IMPRESSION: NORMAL RENAL AND BLADDER ULTRASOUND. Abdomen/Pelvis CT 08/09/16 00:00 IMPRESSION: 1. Noncontrast study reveals no acute or suspicious abdominopelvic abnormality. As described above, oral contrast was not given due to technical error. Study can be repeated with oral contrast if felt to be clinically warranted. As assessed, however no bowel pathology evident. No hernia. Skeletal Survey 08/10/16 00:00 IMPRESSION: NO WORRISOME BONE LESIONS. Bone Biopsy CT 08/11/16 00:00 IMPRESSION: CT GUIDED BIOPSY OF THE RIGHT POSTERIOR ILIAC CREST BONE MARROW PERFORMED WITHOUT IMMEDIATE COMPLICATION. PATHOLOGY PENDING. Assessment & Plan - Diagnosis (1) Hyperkalemia Is this a current diagnosis for this admission?: YesPlan: Stable. However advised the need for an appropriate renal diet. We discussed implications of high potassium in the face of severe renal failure. (2) Vomiting Qualifiers: Vomiting type: unspecified Is this a current diagnosis for this admission?: Yes (3) Acute renal failure Qualifiers: Acute renal failure type: unspecified Qualified Code(s): N17.9 - Acute kidney failure, unspecified Is this a current diagnosis for this admission?: YesPlan: As per her labs were reviewed with the patient is latest creatinine is 4.7 as yesterday was a 5.1 as as compared to admission of 6.1. Is nonoliguric. This is encouraging. However now that we know of the cause of his acute kidney injury I discussed briefly about the abnormal proteins in his blood as a cause factor for his renal failure and the final straw was the dehydration. I have told him that Dr. Acosta will be highlighting more about the abnormal proteins once she makes her rounds. Currently there is no indications for renal replacements. However needs to watch him as how he is responding to the initiation of treatments for the myeloma. I am going to be out of town for the next [address] Thomas will be calling me in my absence as needed basis. I would like to see him in the office in about 10 days time with labs for which I have given him a slip. We discussed at length a renal diet. (4) Dehydration Is this a current diagnosis for this admission?: Yes (5) Thrombocytopenia Is this a current diagnosis for this admission?: YesPlan: As per Dr. Acosta (6) Macrocytic anemia Is this a current diagnosis for this admission?: YesPlan: As per Dr. Acosta. (7) Metabolic acidosis Plan: Increased bicarb. Monitor.
[2016-08-13 17:37] LABS: ANTIPROTEINASE 3 (PR-3) AB <3.5 U/mL (0.0-3.5); CYTOPLASMIC (C-ANCA) <1:20 titer (Neg:<1:20)
--- NOTE | 2016-08-13 18:04 | PDOC PROGRESS REPORT ---
Subjective Progress Note for:: 08/13/16 Subjective:: Feeling better eating well Physical Exam Vital Signs: Temp Pulse Resp BP Pulse Ox 97.6 F 63 18 149/92 H 100 08/13/16 16:10 08/13/16 16:10 08/13/16 16:10 08/13/16 16:10 08/13/16 16:10 Intake & Output 08/12/16 08/13/16 08/14/16 06:59 06:59 06:59 Intake Total 3406 950 Output Total 2128 1660 Balance 1431 -710 Weight 101 kg 101.3 kg General appearance: PRESENT: no acute distress Head exam: PRESENT: atraumatic, normocephalic Eye exam: PRESENT: EOMI, PERRLA Ear exam: PRESENT: normal external ear exam Mouth exam: PRESENT: tongue midline Respiratory exam: PRESENT: clear to auscultation gloria, unlabored Cardiovascular exam: PRESENT: RRR GI/Abdominal exam: PRESENT: normal bowel sounds, soft Extremities exam: PRESENT: full ROM Musculoskeletal exam: PRESENT: full ROM Neurological exam: PRESENT: alert, awake, oriented to person, oriented to place , oriented to time, oriented to situation, CN II-XII grossly intact Results Laboratory Results: 08/13/16 06:53 08/13/16 06:53 08/08/16 08/13/16 08/13/16 10:21 06:53 06:53 WBC 10.6 H RBC 2.53 L Hgb 8.6 L Hct 24.7 L MCV 98 H MCH 34.0 H MCHC 34.8 RDW 18.5 H Plt Count 84 L Retic Count (auto) 1.27 Absolute Retic 0.032 Sodium 142.9 Potassium 5.0 Chloride 115 H Carbon Dioxide 16 L Anion Gap 12 BUN 67 H Creatinine 4.71 H Est GFR ( Amer) 15 L Est GFR (Non-Af Amer) 13 L Glucose 108 Uric Acid 7.8 Calcium 8.1 L Total Bilirubin 0.3 AST 19 ALT 35 Alkaline Phosphatase 67 Total Protein 8.4 7.7 Albumin 3.0 2.9 L Impressions: Renal Ultrasound 08/07/16 00:00 IMPRESSION: NORMAL RENAL AND BLADDER ULTRASOUND. Abdomen/Pelvis CT 08/09/16 00:00 IMPRESSION: 1. Noncontrast study reveals no acute or suspicious abdominopelvic abnormality. As described above, oral contrast was not given due to technical error. Study can be repeated with oral contrast if felt to be clinically warranted. As assessed, however no bowel pathology evident. No hernia. Skeletal Survey 08/10/16 00:00 IMPRESSION: NO WORRISOME BONE LESIONS. Bone Biopsy CT 08/11/16 00:00 IMPRESSION: CT GUIDED BIOPSY OF THE RIGHT POSTERIOR ILIAC CREST BONE MARROW PERFORMED WITHOUT IMMEDIATE COMPLICATION. PATHOLOGY PENDING. Assessment & Plan - Diagnosis (1) Acute renal failure Qualifiers: Acute renal failure type: unspecified Qualified Code(s): N17.9 - Acute kidney failure, unspecified Is this a current diagnosis for this admission?: YesPlan: Improving with labs showinga monoclonal protein worrisome for MM (2) Macrocytic anemia Is this a current diagnosis for this admission?: YesPlan: As above, labs worrisome for MM so will continue the steroids and begin treatment once we have confirmation on the bone marrow. (3) Thrombocytopenia Is this a current diagnosis for this admission?: YesPlan: Suspect related to the underlying marrow based problem - Time Time Spent with patient: 35 or more minutes Critical Time spent with patient: 25-34 minutes Medications reviewed and adjusted accordingly: Yes Within: within 36 hours
--- NOTE | 2016-08-13 20:16 | PDOC PROGRESS REPORT ---
Subjective Progress Note for:: 08/13/16 Subjective:: Patient still remains asymptomatic The renal function is improving Physical Exam Vital Signs: Temp Pulse Resp BP Pulse Ox 97.6 F 63 18 149/92 H 100 08/13/16 16:10 08/13/16 16:10 08/13/16 16:10 08/13/16 16:10 08/13/16 16:10 Intake & Output 08/12/16 08/13/16 08/14/16 00:59 00:59 00:59 Intake Total 2956 2500 2346 Output Total 1300 2335 700 Balance 0094 649 6028 Weight 101.2 kg 101 kg 101.3 kg Results Laboratory Results: 08/13/16 06:53 08/13/16 06:53 08/08/16 08/13/16 08/13/16 10:21 06:53 06:53 WBC 10.6 H RBC 2.53 L Hgb 8.6 L Hct 24.7 L MCV 98 H MCH 34.0 H MCHC 34.8 RDW 18.5 H Plt Count 84 L Retic Count (auto) 1.27 Absolute Retic 0.032 Sodium 142.9 Potassium 5.0 Chloride 115 H Carbon Dioxide 16 L Anion Gap 12 BUN 67 H Creatinine 4.71 H Est GFR ( Amer) 15 L Est GFR (Non-Af Amer) 13 L Glucose 108 Uric Acid 7.8 Calcium 8.1 L Total Bilirubin 0.3 AST 19 ALT 35 Alkaline Phosphatase 67 Total Protein 8.4 7.7 Albumin 3.0 2.9 L 08/08/16 10:21 Immunoglobulin A 14 L Immunoglobulin G 4665 H Immunoglobulin M 5 L Impressions: Renal Ultrasound 08/07/16 00:00 IMPRESSION: NORMAL RENAL AND BLADDER ULTRASOUND. Abdomen/Pelvis CT 08/09/16 00:00 IMPRESSION: 1. Noncontrast study reveals no acute or suspicious abdominopelvic abnormality. As described above, oral contrast was not given due to technical error. Study can be repeated with oral contrast if felt to be clinically warranted. As assessed, however no bowel pathology evident. No hernia. Skeletal Survey 08/10/16 00:00 IMPRESSION: NO WORRISOME BONE LESIONS. Bone Biopsy CT 08/11/16 00:00 IMPRESSION: CT GUIDED BIOPSY OF THE RIGHT POSTERIOR ILIAC CREST BONE MARROW PERFORMED WITHOUT IMMEDIATE COMPLICATION. PATHOLOGY PENDING. Assessment & Plan - Diagnosis (1) Anemia Qualifiers: Anemia type: unspecified type Qualified Code(s): D64.9 - Anemia, unspecified Is this a current diagnosis for this admission?: Yes (2) Acute renal failure Qualifiers: Acute renal failure type: unspecified Qualified Code(s): N17.9 - Acute kidney failure, unspecified Is this a current diagnosis for this admission?: Yes (3) Thrombocytopenia Is this a current diagnosis for this admission?: Yes - Time Time Spent with patient: Continue management as per Dr. Acosta Continue hydration Time Spent with patient: 25-34 minutes
[2016-08-14] MEDS: METHYLPREDNISOLONE INJ 125 MG/2 ML SDV IV SCH (10:42)
[2016-08-14] MEDS: SODIUM BICARBONATE 650 MG TABLET PO SCH (10:42)
[2016-08-14 12:15] LABS: HEMATOCRIT 27.5 % (37.9-51.0); HEMOGLOBIN 9.3 g/dL (13.5-17.0); HGB HCT DIFFERENCE 0.4; MEAN CORPUSCULAR HEMOGLOBIN 32.8 pg (27.0-33.4); MEAN CORPUSCULAR HGB CONC 33.7 g/dL (32.0-36.0); MEAN CORPUSCULAR VOLUME 97 fl (80-97); RED BLOOD COUNT 2.83 10^6/uL (4.35-5.55); RED CELL DISTRIBUTION WIDTH 18.6 % (11.5-14.0); WHITE BLOOD COUNT 12.9 10^3/uL (4.0-10.5)
[2016-08-14 12:35] LABS: ANION GAP 11 (5-19); BLOOD UREA NITROGEN 75 mg/dL (7-20); CALCIUM 8.5 mg/dL (8.4-10.2); CARBON DIOXIDE 20 mmol/L (22-30); CHLORIDE 113 mmol/L (98-107); CREATININE RESULT 4.49 mg/dL (0.52-1.25); GLUCOSE 91 mg/dL (75-110); POTASSIUM 5.1 mmol/L (3.6-5.0); SODIUM 143.6 mmol/L (137-145)
--- NOTE | 2016-08-14 13:05 | PDOC PROGRESS REPORT ---
Subjective Progress Note for:: 08/14/16 Subjective:: Feeling better eating well. Denies any symptoms at this point and is able to discuss his bone marrow results. Physical Exam Vital Signs: Temp Pulse Resp BP Pulse Ox 97.7 F 64 20 153/90 H 100 08/14/16 08:14 08/14/16 08:14 08/14/16 08:14 08/14/16 08:14 08/14/16 08:14 Intake & Output 08/13/16 08/14/16 08/15/16 06:59 06:59 06:59 Intake Total 950 2596 Output Total 1660 1360 Balance -710 1236 Weight 101.3 kg 102.3 kg General appearance: PRESENT: no acute distress Head exam: PRESENT: atraumatic, normocephalic Eye exam: PRESENT: EOMI, PERRLA Mouth exam: PRESENT: moist, tongue midline Extremities exam: PRESENT: full ROM Musculoskeletal exam: PRESENT: ambulatory Neurological exam: PRESENT: alert, awake, oriented to person, oriented to place , oriented to time, oriented to situation, CN II-XII grossly intact Psychiatric exam: PRESENT: appropriate affect Results Laboratory Results: 08/14/16 12:04 08/14/16 12:04 08/14/16 08/14/16 12:04 12:04 WBC 12.9 H RBC 2.83 L Hgb 9.3 L Hct 27.5 L MCV 97 MCH 32.8 MCHC 33.7 RDW 18.6 H Plt Count 102 L Sodium 143.6 Potassium 5.1 H Chloride 113 H Carbon Dioxide 20 L Anion Gap 11 BUN 75 H Creatinine 4.49 H Est GFR ( Amer) 16 L Est GFR (Non-Af Amer) 13 L Glucose 91 Calcium 8.5 Impressions: Renal Ultrasound 08/07/16 00:00 IMPRESSION: NORMAL RENAL AND BLADDER ULTRASOUND. Abdomen/Pelvis CT 08/09/16 00:00 IMPRESSION: 1. Noncontrast study reveals no acute or suspicious abdominopelvic abnormality. As described above, oral contrast was not given due to technical error. Study can be repeated with oral contrast if felt to be clinically warranted. As assessed, however no bowel pathology evident. No hernia. Skeletal Survey 08/10/16 00:00 IMPRESSION: NO WORRISOME BONE LESIONS. Bone Biopsy CT 08/11/16 00:00 IMPRESSION: CT GUIDED BIOPSY OF THE RIGHT POSTERIOR ILIAC CREST BONE MARROW PERFORMED WITHOUT IMMEDIATE COMPLICATION. PATHOLOGY PENDING. Assessment & Plan - Diagnosis (1) Acute renal failure Qualifiers: Acute renal failure type: unspecified Qualified Code(s): N17.9 - Acute kidney failure, unspecified Is this a current diagnosis for this admission?: YesPlan: Improving with steroids and hydration. Given a list of potassium containing foods to avoid. (2) Macrocytic anemia Is this a current diagnosis for this admission?: Yes (3) Thrombocytopenia Is this a current diagnosis for this admission?: YesPlan: REsolving with steroids and will discharge on some as well (4) Multiple myeloma Qualifiers: Multiple myeloma remission status: not in remission Qualified Code(s ): C90.00 - Multiple myeloma not having achieved remission Is this a current diagnosis for this admission?: YesPlan: Discussed findings with MR. Morales and subsequent treatment in detail. Will recommend discharge on Decadron x 4 days as well as ASA 81mg to begin on Wednesday , Valtrex and will schedule treatment with [facility] as an outpatient. Spent 45+ minutes in discussion and likely # of cycles and possible PSCT. - Time Time Spent with patient: 35 or more minutes Critical Time spent with patient: 35 or more minutes Medications reviewed and adjusted accordingly: Yes Anticipated discharge: Home Within: within 24 hours
--- NOTE | 2016-08-14 15:22 | PDOC DISCHARGE SUMMARY ---
General - Admit/Disc Date/PCP Admission Date/Primary Care Provider: 08/07/16 18:43 KINGA MEJIA MD Discharge Date: 08/14/16 - Discharge Diagnosis (1) Anemia Is this a current diagnosis for this admission?: YesSummary: 08/08/16 08/08/16 08/11/16 05:43 05:43 09:35 Hgb 7.7 L Hct 22.7 L Iron 55.4 TIBC 197 L Transferrin 136 L Ferritin 153.00 Vitamin B12 571.0 Folate 7.06 08/14/16 12:04 Hgb 9.3 L Hct 27.5 L Iron TIBC Transferrin Ferritin Vitamin B12 Folate Patient was admitted with acute anemia The anemia was an anemia of chronic disease Patient was transfused 2 units of packed cells Hematology consult was obtained The anemia was associated with thrombocytopenia Etiology likely autoimmune Anemia and thrombocytopenia improved with steroids (2) Acute renal failure Is this a current diagnosis for this admission?: YesSummary: 08/07/16 08/14/16 15:45 12:04 BUN 67 H 75 H Creatinine 6.64 H 4.49 H Improved with hydration Patient is encouraged to drink a lot of fluids after discharge (3) Thrombocytopenia Is this a current diagnosis for this admission?: YesSummary: 08/07/16 08/11/16 08/11/16 15:45 05:37 09:35 Plt Count 134 L 88 L 103 L 08/11/16 08/13/16 08/14/16 22:25 06:53 12:04 Plt Count 100 L 84 L 102 L autoimmune in etiology Improved with steroids (4) Hyperkalemia Is this a current diagnosis for this admission?: YesSummary: K is 5.1 at discharge; Patient is to follow low K diet (5) Metabolic acidosis Is this a current diagnosis for this admission?: YesSummary: Mild Resolved during hospitalization (6) Multiple myeloma Is this a current diagnosis for this admission?: YesSummary: 08/08/16 10:21 M-Sebastien 3.5 H Bone marrow biopsy suggestive of multiple myeloma Patient was evaluated by Dr. Acosta and will be followed in the office to initiate chemotherapy - Additional Information Resuscitation Status: Full Code Discharge Diet: Other (Comments) - low potassium Discharge Activity: Activity As Tolerated Home Medications: Fexofenadine HCl [Berenice] 180 mg PO DAILY 08/07/16 Omeprazole 20 mg PO ACBRKFST 08/07/16 Oxycodone HCl/Acetaminophen [Percocet 5-325 mg Tablet] 1 tab PO Q6HP PRN Rosuvastatin Calcium [Crestor 5 mg Tablet] 5 mg PO DAILY 08/07/16 Aspirin [Ecotrin] 81 mg PO DAILY PRN #30 tab 08/14/16 Dexamethasone [Decadron 4 Mg Tablet] 10 mg PO DAILY #10 tablet 08/14/16 Valacyclovir HCl [Valtrex 500 Mg Tablet] 500 mg PO DAILY #30 tablet 08/14/16 History of Present Illness Patient complains of: Abnormal labs History of Present Illness: BENNETT CASTILLO is a 61 year old male presents from his primary care provider's office after labs revealed renal insufficiency with a serum creatinine up to 6.4. Patient reports over the course of the last week he's had intense sinus drainage that makes him nauseous and so is been unable to eat or drink anything of substance and has been vomiting quite frequently. He denies abdominal pain, fevers or chills, sore throat, odynophagia, chest pain, palpitations, diarrhea. He does not use chronic nonsteroidal anti-inflammatory medications and does not take a daily aspirin. He has not noticed a change in the color content or volume of his urine. He denies dysuric symptoms. He has never had renal insufficiency before to his knowledge. He was seen in his PCPs office earlier in the week and treated with Mucinex which he took inappropriately for about a day and was the extended release formulation that he took every 6 hours instead of every 12. He also started taking Berenice but without the pseudoephedrine portion and his primary care provider recently started him on Prilosec. Evaluation in the emergency department shows a markedly elevated BUN/creatinine is 67/6.4, his potassium is 5.1, CO2 is 17. He is alert and oriented to person present time. He has no EKG changes. We've been asked to admit for IV hydration and nephrology consult. Hospital Course Hospital Course: See above Physical Exam Vital Signs: Temp Pulse Resp BP Pulse Ox 97.7 F 65 18 152/91 H 100 08/14/16 11:31 08/14/16 14:00 08/14/16 11:31 08/14/16 11:31 08/14/16 11:31 Intake & Output 08/13/16 08/14/16 08/15/16 00:59 00:59 00:59 Intake Total 2500 2596 340 Output Total 2335 1360 960 Balance 165 1236 -620 Weight 101 kg 101.3 kg 102.3 kg General appearance: PRESENT: no acute distress, well-developed, well-nourished Head exam: PRESENT: atraumatic, normocephalic Eye exam: PRESENT: conjunctiva pink, EOMI, PERRLA. ABSENT: scleral icterus Ear exam: PRESENT: normal external ear exam Mouth exam: PRESENT: moist, tongue midline Neck exam: ABSENT: carotid bruit, JVD, lymphadenopathy, thyromegaly Respiratory exam: PRESENT: clear to auscultation gloria. ABSENT: rales, rhonchi, wheezes Cardiovascular exam: PRESENT: RRR. ABSENT: diastolic murmur, rubs, systolic murmur Pulses: PRESENT: normal dorsalis pedis pul Vascular exam: PRESENT: normal capillary refill GI/Abdominal exam: PRESENT: normal bowel sounds, soft. ABSENT: distended, guarding, mass, organolmegaly, rebound, tenderness Rectal exam: PRESENT: deferred Extremities exam: PRESENT: full ROM. ABSENT: calf tenderness, clubbing, pedal edema Neurological exam: PRESENT: alert, awake, oriented to person, oriented to place , oriented to time, oriented to situation, CN II-XII grossly intact. ABSENT: motor sensory deficit Psychiatric exam: PRESENT: appropriate affect, normal mood. ABSENT: homicidal ideation, suicidal ideation Skin exam: PRESENT: dry, intact, warm. ABSENT: cyanosis, rash Results Laboratory Results: 08/14/16 12:04 08/14/16 12:04 08/14/16 08/14/16 12:04 12:04 WBC 12.9 H RBC 2.83 L Hgb 9.3 L Hct 27.5 L MCV 97 MCH 32.8 MCHC 33.7 RDW 18.6 H Plt Count 102 L Sodium 143.6 Potassium 5.1 H Chloride 113 H Carbon Dioxide 20 L Anion Gap 11 BUN 75 H Creatinine 4.49 H Est GFR ( Amer) 16 L Est GFR (Non-Af Amer) 13 L Glucose 91 Calcium 8.5 Impressions: Renal Ultrasound 08/07/16 00:00 IMPRESSION: NORMAL RENAL AND BLADDER ULTRASOUND. Abdomen/Pelvis CT 08/09/16 00:00 IMPRESSION: 1. Noncontrast study reveals no acute or suspicious abdominopelvic abnormality. As described above, oral contrast was not given due to technical error. Study can be repeated with oral contrast if felt to be clinically warranted. As assessed, however no bowel pathology evident. No hernia. Skeletal Survey 08/10/16 00:00 IMPRESSION: NO WORRISOME BONE LESIONS. Bone Biopsy CT 08/11/16 00:00 IMPRESSION: CT GUIDED BIOPSY OF THE RIGHT POSTERIOR ILIAC CREST BONE MARROW PERFORMED WITHOUT IMMEDIATE COMPLICATION. PATHOLOGY PENDING. Plan Discharge Plan: Home\low low K diet Follow-up with Dr. Acosta next week Time Spent: Greater than 30 Minutes
[2016-08-14 16:50] VITALS: BP 157/88
[2016-08-17 16:38] LABS: ALBUMIN URINE 3.5 % (.); BETA GLOBULIN UR 5.3 % (.); GAMMA GLOBULIN UR 88.9 % (.); M-SPIKE % URINE 81.4 % (Not Observed); M-SPIKE URINE 24 HR 2989 mg/24 hr (Not Observed)
[2016-08-18 07:09] LABS: PROTEIN TOTAL UR 24HR 3672.2 mg/24 hr (30.0-150.0)
== END 2016-08-14 19:04 | disposition home or self-care (01) | DRG 683 ==
LOC: ER 15:03 → EH 18:07 → UNDOADMIN 18:07 → EH 18:43 → 5 08-08 00:58
PROVIDERS: ADMIT Internal Medicine; ATTEND Internal Medicine
PROC: 07DR3ZX Extraction of Iliac Bone Marrow, Percutaneous Approach, Diagnostic (ICD-10-PCS; principal; 2016-08-11)
DX: N17.9 Acute kidney failure, unspecified (principal); E87.2 Acidosis; C90.00 Multiple myeloma not having achieved remission; D64.9 Anemia, unspecified; E87.5 Hyperkalemia; E86.0 Dehydration; D69.6 Thrombocytopenia, unspecified; E78.5 Hyperlipidemia, unspecified; Z79.899 Other long term (current) drug therapy
CPT/HCPCS: 20225; 36415; 36430; 74176; 76770; 77075; 80048; 80053; 80061; 81001; 82150; 82272; 82550; 82607; 82728; 82746; 83010; 83036; 83516; 83540; 83550; 83615; 83690; 83735; 84100; 84156; 84166; 84466; 84550; 85025; 85027; 85045; 85384; 85610; 85730; 86038; 86256; 86320; 86325; 86850; 86900; 86901; 86920; 88184; 88185; 93005; 93010; 99291; J1100; J1815; J2405; J2930; J3010; J3490; J7030; P9016; S0164

== ENCOUNTER → 2016-08-07 | Outpatient (CLI) | payer BC ==
[2016-08-07 09:11] LABS: HEMATOCRIT 27.9 % (37.9-51.0); HEMOGLOBIN 9.5 g/dL (13.5-17.0); HGB HCT DIFFERENCE 0.6; MEAN CORPUSCULAR HEMOGLOBIN 33.9 pg (27.0-33.4); MEAN CORPUSCULAR VOLUME 100 fl (80-97); RED BLOOD COUNT 2.79 10^6/uL (4.35-5.55); RED CELL DISTRIBUTION WIDTH 16.6 % (11.5-14.0); WHITE BLOOD COUNT 8.3 10^3/uL (4.0-10.5)
[2016-08-07 09:35] LABS: ALANINE AMINOTRANSFERASE 32 U/L (21-72); ALBUMIN 3.9 g/dL (3.5-5.0); ALKALINE PHOSPHATASE 100 U/L (38-126); ANION GAP 12 (5-19); ASPARTATE AMINO TRANSFERASE 25 U/L (17-59); BILIRUBIN,DIRECT 0.6 mg/dL (0.0-0.4); BILIRUBIN,TOTAL 0.7 mg/dL (0.2-1.3); BLOOD UREA NITROGEN 64 mg/dL (7-20); CALCIUM 9.6 mg/dL (8.4-10.2); CARBON DIOXIDE 21 mmol/L (22-30); CHLORIDE 111 mmol/L (98-107); CREATININE RESULT 6.73 mg/dL (0.52-1.25); GLUCOSE 108 mg/dL (75-110); MAGNESIUM 2.2 mg/dL (1.6-2.3); POTASSIUM 5.4 mmol/L (3.6-5.0); SODIUM 143.6 mmol/L (137-145); TOTAL PROTEIN 10.8 g/dL (6.3-8.2)
== END ==
LOC: LAB 08:47
PROVIDERS: ATTEND Family Medicine
DX: R11.2 Nausea with vomiting, unspecified (principal)
CPT/HCPCS: 36415; 80053; 83690; 83735; 85027

== ENCOUNTER 2016-09-16 12:30 | Emergency (ER) | payer BC ==
[2016-09-16] MEDS ORDERED: HEPARIN SOD (PORCINE) 5,000 UNIT/ML 1 ML SYRINGE ONE (14:14)
[2016-09-16] MEDS ORDERED: HEPARIN SODIUM,PORCINE/D5W 25,000 UNIT/250 ML RTUINJ IV ONE (14:14)
[2016-09-16] MEDS ORDERED: ASPIRIN 81 MG TABLET, CHEWABLE ONE (14:29)
--- NOTE | 2016-09-17 10:38 | EKG REPORT ---
SEVERITY:- ABNORMAL ECG - SINUS TACHYCARDIA INCOMPLETE RBBB AND LAFB BORDERLINE PROLONGED QT INTERVAL : Confirmed by: Emelyn Charles MD 17-Sep-2016 10:37:55
[2016-09-17 11:47] LABS: HEMATOCRIT 27.3 % (37.9-51.0); HEMOGLOBIN 9.4 g/dL (13.5-17.0); HGB HCT DIFFERENCE 0.9; MEAN CORPUSCULAR HGB CONC 34.5 g/dL (32.0-36.0); MEAN CORPUSCULAR VOLUME 96 fl (80-97); RED BLOOD COUNT 2.85 10^6/uL (4.35-5.55); RED CELL DISTRIBUTION WIDTH 18.3 % (11.5-14.0); WHITE BLOOD COUNT 4.4 10^3/uL (4.0-10.5)
[2016-09-17 11:56] LABS: ANISOCYTOSIS 2+; BAND NEUTROPHILS % (MANUAL) 5 % (3-5); BASOPHILS % (MANUAL) 0 % (0-2); EOSINOPHILS % (MANUAL) 0 % (0-6); HYPOCHROMASIA 1+; LYMPHOCYTES % (MANUAL) 6 % (13-45); OVALOCYTES 1+; PLATELET CLUMPS PRESENT; POIKILOCYTOSIS 1+; POLYCHROMASIA 2+; TOTAL CELLS COUNTED 100; TOXIC GRANULATION 1+
[2016-09-17 13:55] LABS: BLOOD UREA NITROGEN 34 mg/dL (7-20); CARBON DIOXIDE 25 mmol/L (22-30); CHLORIDE 103 mmol/L (98-107); CREATININE RESULT 2.06 mg/dL (0.52-1.25); GLUCOSE 97 mg/dL (75-110); POTASSIUM 4.5 mmol/L (3.6-5.0)
[2016-09-17 13:56] LABS: ALANINE AMINOTRANSFERASE 81 U/L (21-72); ALBUMIN 2.9 g/dL (3.5-5.0); ALKALINE PHOSPHATASE 99 U/L (38-126); ANION GAP 9 (5-19); ASPARTATE AMINO TRANSFERASE 38 U/L (17-59); BILIRUBIN,DIRECT 0.4 mg/dL (0.0-0.4); BILIRUBIN,TOTAL 0.6 mg/dL (0.2-1.3); CREATINE KINASE 20 U/L (55-170); SODIUM 137.1 mmol/L (137-145); TOTAL PROTEIN 5.7 g/dL (6.3-8.2)
--- NOTE | 2016-10-06 13:55 | RADIOLOGY REPORT (SQ) ---
EXAM DESCRIPTION: NM LUNG VENT/PERF SCAN COMPLETED DATE/TIME: 09/17/2016 2:58 pm REASON FOR STUDY: CHEST PAIN, SOB N50.812 LEFT TESTICULAR PAIN N45.1 EPIDIDYMITIS N50.812 LEFT TESTI CULAR PAIN COMPARISON: Chest x-ray done earlier in the day. RADIONUCLIDE AND DOSE: 5.47 millicuries TC-99m MAA 31.0 millicuries TC-99m DTPA aerosol TECHNIQUE: Eight views of the lungs acquired post ventilation of DTPA aerosol. Eight matching views of the lungs acquired following injection of MAA. LIMITATIONS: None. FINDINGS: VENTILATION: Patchy heterogenous distribution throughout both lungs. PERFUSION: Marked decreased profusion in the right upper lobe and right middle lobe. Patchy subsegmen lili areas of decreased perfusion bilaterally. OTHER: No other significant finding. IMPRESSION: LARGE AREA OF VENTILATION-PERFUSION MISMATCH INVOLVING A MAJORITY OF THE RIGHT UPPER LOB E AND RIGHT MIDDLE LOBE. PATCHY SUBSEGMENTAL PERFUSION DEFECTS WELL. FINDINGS ARE FELT TO BE HIGH PROBABILITY OF PULMONARY EMBOLISM. TECHNICAL DOCUMENTATION: JOB ID: [id number] D/ Line above is the original date and time. 2010 [employer]- All Rights Reserved
== END 2016-09-16 19:05 | disposition short-term general hospital (02) ==
LOC: ER 12:30
DX: I21.4 Non-ST elevation (NSTEMI) myocardial infarction (principal); R55 Syncope and collapse; I45.2 Bifascicular block; R09.02 Hypoxemia; R00.0 Tachycardia, unspecified; R06.02 Shortness of breath; Z79.899 Other long term (current) drug therapy; C90.00 Multiple myeloma not having achieved remission
CPT/HCPCS: 93005; 99285; 96361; 96365; 96366; 36415; 82550; 85025; 80053; 84484; 71020; 78582; 93010; A9540; A9567; Q9969

== ENCOUNTER 2018-10-03 12:13 | Emergency (ER) | payer BC ==
--- NOTE | 2018-10-03 13:19 | ER Document Report ---
ED Medical Screen (RME) - General Chief Complaint: Leg Pain Stated Complaint: LEFT LEG PAIN Time Seen by Provider: 10/03/18 13:00 Primary Care Provider: KATHERYN PRESTON MD [Primary Care Provider] - Follow up as needed Notes: 63 male with history of myeloma in remission and extensive blood clots secondary to the cancer presents to the emergency department with concern for blood clot after positive d-dimer at [facility] care. Primary is Dr. Thomas. Patient with recent travel to [place] where he drove for about 12 hours, was there for a couple of days, then returned on a long [address] At the urgent care d-dimer level was 588 and was told to come here. Patient denies any deep calf tenderness, complains of redness and edema of the posterior medial left thigh. Denies fevers. See accompanying paperwork for testing results TRAVEL OUTSIDE OF THE [place] IN LAST 30 DAYS: No - Related Data Allergies/Adverse Reactions: No Known Allergies Allergy (Verified 10/03/18 12:14) Past Medical History - Social History Chew tobacco use (# tins/day): No Frequency of alcohol use: None Drug Abuse: None - Past Medical History Cardiac Medical History: Denies: Hx Heart Attack, Hx Hypertension Pulmonary Medical History: Denies: Hx Asthma Neurological Medical History: Denies: Hx Cerebrovascular Accident, Hx Seizures Renal/ Medical History: Denies: Hx Peritoneal Dialysis GI Medical History: Denies: Hx Hepatitis, Hx Hiatal Hernia, Hx Ulcer Psychiatric Medical History: Denies: Hx Depression Infectious Medical History: Denies: Hx Hepatitis Past Surgical History: Reports: Hx Abdominal Surgery - hernia repair x2, Other - Double inguinal hernia surgery recently at [facility]. Denies: Hx Open Heart Surgery, Hx Pacemaker - Immunizations Hx Diphtheria, Pertussis, Tetanus Vaccination: No Physical Exam - Vital signs Vitals: Temp Pulse Resp BP Pulse Ox 97.5 F 56 L 17 134/78 H 98 10/03/18 12:16 10/03/18 12:16 10/03/18 12:16 10/03/18 12:16 10/03/18 12:16 Course - Vital Signs Vital signs: Temp Pulse Resp BP Pulse Ox 97.5 F 56 L 17 134/78 H 98 10/03/18 12:16 10/03/18 12:16 10/03/18 12:16 10/03/18 12:16 10/03/18 12:16 Doctor's Discharge - Discharge Referrals: KATHERYN PRESTON MD [Primary Care Provider] - Follow up as needed
[2018-10-03 15:16] VITALS: BP 131/84
--- NOTE | 2018-10-03 15:16 | ER Document Report ---
ED Extremity Problem, Lower - General Chief Complaint: Leg Pain Stated Complaint: LEFT LEG PAIN Time Seen by Provider: 10/03/18 13:00 Primary Care Provider: KATHERYN PRESTON MD [ACTIVE STAFF] - Follow up as needed Mode of Arrival: Ambulatory Information source: Patient Notes: 63-year-old male presented to ED for pain and redness to the posterior left leg from just above the knee to just below the knee. Patient went to Dr. Ball this morning and had a d-dimer done the level was 588 and was told to come to the emergency room. He denies any deep calf tenderness there is redness swelling and pain to the mid thigh to just below the knee. He states he had a recent diagnosis of myeloma and was on chemotherapy but has completed that. He states he had a history of a deep vein thrombosis but was taken off all medications after he was taken off the medications for his myeloma. Patient states he did drive to [place] and back and was concerned about a DVT. He is alert oriented respirations regular and unlabored speaking in full sentences walks with even steady gait. TRAVEL OUTSIDE OF THE [place] IN LAST 30 DAYS: No - HPI Patient complains to provider of: Pain, Swelling Location: Knee, Leg, Thigh Occurred: Last week Onset/Duration: Gradual Quality of pain: Burning Severity: Moderate Pain Level: 4 Context: Recent travel Recent injury: No Associated symptoms: Painful ambulation Exacerbated by: Movement, Walking Relieved by: Nothing - Related Data Allergies/Adverse Reactions: No Known Allergies Allergy (Verified 10/03/18 12:14) Past Medical History - General Information source: Patient - Social History Smoking Status: Former Smoker Chew tobacco use (# tins/day): No Frequency of alcohol use: None Drug Abuse: None Occupation: Lawn care Lives with: Alone Family History: Reviewed & Not Pertinent Patient has suicidal ideation: No Patient has homicidal ideation: No - Past Medical History Cardiac Medical History: Reports: Hx Hypercholesterolemia Pulmonary Medical History: Reports: None EENT Medical History: Reports: None Neurological Medical History: Reports: Other - Peripheral neuropathy due to chemotherapy Endocrine Medical History: Reports: None Renal/ Medical History: Reports: None Malignancy Medical History: Reports Hx Bone Cancer - Myeloma GI Medical History: Reports: None Musculoskeletal Medical History: Reports None Skin Medical History: Reports None Psychiatric Medical History: Reports: None Traumatic Medical History: Reports: None Infectious Medical History: Reports: None Past Surgical History: Reports: Hx Inguinal Hernia - Bilateral - Immunizations Immunizations up to date: Yes Hx Diphtheria, Pertussis, Tetanus Vaccination: Yes Review of Systems - Review of Systems Constitutional: No symptoms reported EENT: No symptoms reported Cardiovascular: No symptoms reported Respiratory: No symptoms reported Gastrointestinal: No symptoms reported Genitourinary: No symptoms reported Male Genitourinary: No symptoms reported Musculoskeletal: Leg swelling Skin: Change in color Hematologic/Lymphatic: No symptoms reported Neurological/Psychological: No symptoms reported -: Yes All other systems reviewed and negative Physical Exam - Vital signs Vitals: Temp Pulse Resp BP Pulse Ox 97.5 F 56 L 17 134/78 H 98 10/03/18 12:16 10/03/18 12:16 10/03/18 12:16 10/03/18 12:16 10/03/18 12:16 Interpretation: Normal - General General appearance: Appears well, Alert - HEENT Head: Normocephalic, Atraumatic Eyes: Normal Pupils: PERRL - Respiratory Respiratory status: No respiratory distress Chest status: Nontender Breath sounds: Normal Chest palpation: Normal - Cardiovascular Rhythm: Regular Heart sounds: Normal auscultation Murmur: No - Abdominal Inspection: Normal Distension: No distension Bowel sounds: Normal Tenderness: Nontender Organomegaly: No organomegaly - Back Back: Normal, Nontender - Extremities General upper extremity: Normal inspection, Nontender, Normal color, Normal ROM, Normal temperature General lower extremity: Normal weight bearing. No: Valeria's sign Thigh: Tender, Other - Red warm area to the mid thigh to below the knee Knee: Tender - Mid thigh to the below the knee erythematous warm, Patellar tendon intact, Popliteal fossa tender. No: Pain with ROM, Tender joint line, Unable to bear weight Calf: Tender, Other - Erythematous warm area from above the knee to below the knee - Neurological Neuro grossly intact: Yes Cognition: Normal Orientation: AAOx4 [place] Coma Scale Eye Opening: Spontaneous [place] Coma Scale Verbal: Oriented Tanisha Coma Scale Motor: Obeys Commands Tanisha Coma Scale Total: 15 Speech: Normal Motor strength normal: LUE, RUE, LLE, RLE Sensory: Normal - Psychological Associated symptoms: Normal affect, Normal mood - Skin Skin Temperature: Warm Skin Moisture: Dry Skin Color: Normal Course - Re-evaluation Re-evalutation: 06/04/19 02:47 Patient given instructions for warm compresses elevation on aspirin for superficial thrombophlebitis. Patient instructed to follow-up with primary care doctor. Patient verbalized understanding and agreement with treatment plan. Patient was discharged home. - Vital Signs Vital signs: Temp Pulse Resp BP Pulse Ox 97.8 F 61 18 131/84 H 99 10/03/18 15:15 10/03/18 15:15 10/03/18 15:15 10/03/18 15:15 10/03/18 15:15 - Diagnostic Test Radiology reviewed: Image reviewed Discharge - Discharge Clinical Impression: Greatest saphenous vein thrombophlebitis Condition: Stable Disposition: HOME, SELF-CARE Additional Instructions: Your venous Doppler shows a greater saphenous vein superficial thrombophlebitis from the mid thigh to below the knee. Aspirin Aspirin may be given for pain relief, fever control, or control of inflammation. While aspirin is not as safe as acetaminophen, it has some therapeutic effects which often make it a good choice. Aspirin may be repeated every four hours, not to exceed five doses daily. Ringing in the ears, nausea, or dizziness may mean overdosage. Aspirin should not be given for influenza or chicken pox, and should not be taken by women. Please take 325 mg daily for the thrombophlebitis. You can take 650 mg for pain if you need. Warm Packs Warm moist heat for about 20 to 30 minutes about every two hours -- at least 3 times daily. Warmth and elevation will help you make a more rapid recovery, and will ease the pain considerably. Do not use HOT heat, and never apply heat for longer than 30 minutes. The continuous heat can invisibly damage skin and muscles -- even when no burn is seen on the surface. Damaged muscles can make you MORE sore. A warm towel not hard enough to burn that is running out and left on I did reheated by applying more hot water is the best heat for this condition. If you decide to use the rice in a sock method just do not overheated on enough to burn yourself. Heating pads are not recommended as people leave did not want to long and you can burn yourself. FOLLOW-UP CARE: If you have been referred to a physician for follow-up care, call the physicians office for an appointment as you were instructed or within the next two days. If you experience worsening or a significant change in your symptoms, notify the physician immediately or return to the Emergency Department at any time for re-evaluation. Please call Dr. Ball in the morning for a follow-up appointment in the next 48 hours. Forms: Elevated Blood Pressure Referrals: KATHERYN PRESTON MD [ACTIVE STAFF] - Follow up as needed
[2018-10-03] MEDS ORDERED: ASPIRIN 325 MG TABLET PO ONE (15:18)
--- NOTE | 2018-10-04 10:18 | XCELERA REPORT ---
[address] [facility] [address] [facility] Extremity Venous Evaluation Procedure: Color flow and duplex imaging of the veins of the left lower extremity as well as the right Common Femoral vein. Right Sided Venous Evaluation The right common femoral vein is fully compressible. Spontaneous and phasic flow is present in the right common femoral vein. Left Sided Venous Evaluation Dilated, echolucent, no flow in greater Saphenous in below knee. Otherwise normal vessel filling wall to wall, compression and augmentation as well as Colour flow down to the infrageniculate veins. Interpretation Summary No duplex evidence of DVT or obstruction in the left lower extremity nor in the right Common Femoral vein. Acute superficial phlebitis in left Greater Saphenous vein. Name: BENNETT CASTILLO Age: 63 yrs Gender: Male : 1955 Patient Status: Emergency Patient Location: ER Study Date: 10/03/2018 02:42 PM Reason For Study: Proximal left lower extremity pain/edema/redness Ordering Physician: ELIZA LUJAN Performed By: [place] : ELIZA LUJAN > Fabian Najera
== END 2018-10-03 15:41 | disposition home or self-care (01) ==
LOC: ER 12:13
DX: I80.02 Phlebitis and thrombophlebitis of superficial vessels of left lower extremity (principal); Z86.718 Personal history of other venous thrombosis and embolism; Z87.891 Personal history of nicotine dependence
CPT/HCPCS: 93971; 99283

== ENCOUNTER → 2019-03-01 | Outpatient (CLI) | payer BC ==
--- NOTE | 2019-03-01 14:03 | RADIOLOGY REPORT (SQ) ---
EXAM DESCRIPTION: BONE SURVEY COMPLETE COMPLETED DATE/TIME: 03/01/2019 1:17 pm REASON FOR STUDY: MYELOMA (C90.00) C90.00 MULTIPLE MYELOMA NOT HAVING ACHIEVED REMISSION COMPARISON: 2017 TECHNIQUE: Images of the axial and proximal appendicular skeleton are obtained, along with lateral s kull and frontal chest films. LIMITATIONS: None. FINDINGS: AP CHEST: No bony findings. Lungs are clear. LATERAL SKULL: No worrisome bone lesions. AP BOTH HUMERI: No worrisome bone lesions. TWO-VIEW LUMBAR SPINE: No worrisome bone lesions. TWO-VIEW THORACIC SPINE: No worrisome bone lesions. AP PELVIS: No worrisome bone lesions. AP BOTH FEMURS: No worrisome bone lesions. OTHER: No other significant finding. IMPRESSION: NO WORRISOME BONE LESIONS. TECHNICAL DOCUMENTATION: JOB ID: [id number] [employer]- All Rights Reserved Reading location - IP/workstation name: [email or web address]
== END ==
LOC: RAD 12:24
PROVIDERS: ATTEND Internal Medicine Hematology & Oncology
DX: C90.00 Multiple myeloma not having achieved remission (principal)
CPT/HCPCS: 77075

== ENCOUNTER → 2019-08-28 | Outpatient (CLI) | payer BC, MEDICARE ==
[2019-08-28 13:30] LABS: ALKALINE PHOSPHATASE 58 U/L (38-126); ASPARTATE AMINO TRANSFERASE 29 U/L (17-59); BILIRUBIN,TOTAL 0.4 mg/dL (0.2-1.3); BLOOD UREA NITROGEN 24 mg/dL (7-20); CALCIUM 9.5 mg/dL (8.4-10.2); GLUCOSE 96 mg/dL (75-110); POTASSIUM 4.6 mmol/L (3.6-5.0); TOTAL PROTEIN 6.8 g/dL (6.3-8.2)
[2019-08-28 13:36] LABS: CARBON DIOXIDE 30 mmol/L (22-30); CHLORIDE 103 mmol/L (98-107)
[2019-08-28 13:38] LABS: ALBUMIN 4.3 g/dL (3.5-5.0)
[2019-08-28 13:39] LABS: ANION GAP 4 (5-19)
== END ==
LOC: OD 12:05
PROVIDERS: ATTEND Internal Medicine Hematology & Oncology
DX: C90.00 Multiple myeloma not having achieved remission (principal)
CPT/HCPCS: 36415; 80053; 86850; 86900; 86901

== ENCOUNTER → 2019-10-27 | Outpatient (CLI) | payer MEDICARE, BC ==
--- NOTE | 2019-10-27 15:23 | RADIOLOGY REPORT (SQ) ---
EXAM DESCRIPTION: CTA CHEST IMAGES COMPLETED DATE/TIME: 10/27/2019 1:42 pm REASON FOR STUDY: R07.9 CHEST PAIN, UNSPECIFIED R06.02 SHORTNESS OF BREATH R07.9 CHEST PAIN, UNSPEC IFIED R06.02 SHORTNESS OF BREATH COMPARISON: None. TECHNIQUE: CT scan of the chest performed using helical scanning technique with dynamic intravenous contrast injection. Images reviewed with lung, soft tissue and bone windows. Reconstructed coronal and sagittal MPR images reviewed. Additional 3 dimensional post-processing performed to develop Maximal Intensity Projection images (TN P). All images stored on PACS. All CT scanners at this facility use dose modulation, iterative reconstruction, and/or weight based d osing when appropriate to reduce radiation dose to as low as reasonably achievable (ALARA). [facility]: Dose Right [facility]: CareDose [facility]: Dose Right [facility]: Teradose 4D [facility]: 9GAG CONTRAST TYPE AND DOSE: contrast/concentration: Isovue 350.00 mmol/ml; Total Contrast Delivered: 60. 0 ml; Total Saline Delivered: 56.0 ml Contrast bolus optimized for the pulmonary arteries. Not diagnostic for the aorta. RENAL FUNCTION: GFR > 60. RADIATION DOSE: CT Rad equipment meets quality standard of care and radiation dose reduction techniq ues were employed. CTDIvol: 9.9 - 14.3 mGy. DLP: 578 mGy-cm. . LIMITATIONS: None. FINDINGS: LUNGS AND PLEURA: There are patchy areas of ground-glass attenuation in both lungs. No fo dannie consolidation or pleural effusion. Rounded atelectasis at the posterior lower lobes. No suspici ous pulmonary nodules. AORTA AND GREAT VESSELS: No aneurysm. Contrast bolus not optimized for the aorta. HEART: There is moderate cardiomegaly. Small pericardial effusion/ pericardial thickening. No signif icant coronary artery calcifications. PULMONARY ARTERIES: There are pulmonary emboli in the right lower lobe segmental and subsegmental pul monary arteries as well as at the bifurcation of the right lower and middle lobe pulmonary arteries. There is also thrombus at the left upper and lower lobar pulmonary artery bifurcation extending into the left upper lobe segmental and subsegmental arteries as well as the left lower lobe segmental and subsegmental arteries. The RV/ LV ratio is 4.3/ 3.2 or 1.34, elevated. HILAR AND MEDIASTINAL STRUCTURES: No identified masses or abnormal nodes. HARDWARE: None in the chest. UPPER ABDOMEN: No significant findings. Limited exam. THYROID AND OTHER SOFT TISSUES: No masses. No adenopathy. BONES: No acute or significant finding. 3D MIPS: Confirm above findings. OTHER: No other significant finding. IMPRESSION: 1. Bilateral pulmonary emboli in the right and left lobar, segmental and subsegmental pulmonary arter ies. There is evidence of right heart strain. COMMENT: Findings discussed with Dr. Casey on 10/27/[address] Casey requested patient be sent to her office from the radiology department. Quality ID # [id number]: Final reports with documentation of one or more dose reduction techniques (e.g., Au tomated exposure control, adjustment of the mA and/or kV according to patient size, use of iterative reconstruction technique) TECHNICAL DOCUMENTATION: JOB ID: [id number] 2010 [employer]- All Rights Reserved Reading location - IP/workstation name: [email or web address]
== END ==
LOC: RAD 13:35
PROVIDERS: ATTEND Internal Medicine Hematology & Oncology
DX: R07.9 Chest pain, unspecified (principal); R06.02 Shortness of breath
CPT/HCPCS: 71275